=== PATIENT | female | born 1970 | race Caucasian/White ===

== ENCOUNTER → 2017-02-05 | Outpatient (CLI) | payer BC ==
[~2017-02-05] MED LIST: ASPCH81X PO; CARI350T28 PO; DTR5 PO; FAMO20TA12 PO; HYDR-3714 PO; HYDR25TA5 PO; MULT-506 PO; OMEG10007 PO; POTA10CA28 PO; PROP20TA67 PO; PYRI100T4 PO; SIMV20TA2 PO; [UNRECOGNIZED DRUG - OTHER] EXT
--- NOTE | 2017-02-05 15:17 | EXERCISE STRESS TEST ---
This stress test is being performed because of a chest pain syndrome. The patient exercised for 9 minutes on a standard Adria protocol attaining 10.1 METS and a peak heart rate of 166 beats per minute (95% predicted maximum). The test was terminated due to fatigue. The patient did not experience chest discomfort. Initial blood pressure 136/85 and this increased to 190/90 peak exertion. Baseline EKG shows normal sinus rhythm without abnormalities. At peak exercise, patient demonstrated [address] depressions in the inferolateral leads. This resolved within 30 seconds of recovery, suggesting a false positive EKG response. There were no dysrhythmias. CONCLUSIONS: 1. Abnormal ECG treadmill test. 2. No exercise induced chest pain. 3. No dysrhythmias. RECOMMENDATION: Would perform stress testing with an imaging modality.
== END | disposition home or self-care (01) ==
LOC: C.CPL 11:58
PROVIDERS: ATTEND Family Medicine
DX: R07.89 Other chest pain (principal)

== ENCOUNTER → 2017-03-05 | Day surgery (SDC) | payer BC ==
[2017-02-13 15:10] VITALS: Ht 158.8 cm; Wt 75.0 kg
[~2017-03-05] VITALS: Ht 158.8 cm; Wt 75.0 kg
[~2017-03-05] MED LIST changes: +BUPIVACAINE 0.25% 2.5MG/ML PF 10 ML VIAL INFIL ONE; +LIDOCAINE HCL 1% MPF 5 ML VIAL ONE; -[UNRECOGNIZED DRUG - OTHER] EXT
--- NOTE | 2017-03-05 12:14 | History & Physical Bridge - SC ---
H&P Re-Evaluation Bridge Note: I have examined the patient, reviewed the History & Physical and in the interval since the performance of the History & Physical I have noted the following changes of clinical significance: No changes noted
[2017-03-05 12:35] VITALS: TEMP 37.4
--- NOTE | 2017-03-05 12:41 | Discharge Instructions ---
Discharge Instructions Date of Service March 05, 2017. Visit Reason for Visit: Sacrococcygeal Disorder Discharge Discharge Diagnosis / Problem: coccydynia Discharge Goals Goal(s): Decrease discomfort, Improve function Activity Recommendations Activity Limitations: resume your previous activity Anesthesia . Post Anesthesia Instructions: If you have had General Anesthesia or IV Sedation: * Do not drive today. * Resume driving when surgeon permits. * Do not make important decisions or sign legal documents today. * Call surgeon for: 1. Temperature elevations greater than 101 degrees F. 2. Uncontrollable pain. 3. Excessive bleeding. 4. Persistent nausea and vomiting. 5. Medication intolerance (nausea, vomiting or rash). * For nausea and vomiting use only clear liquids such as: tea, soda, bouillon until nausea subsides, then gradually increase diet as tolerated. * If you have any concerns or questions, call your surgeon's office. If physician is unavailable and it is an emergency, call 911 or go to the nearest emergency room. . Diet Recommendations Recommended Home Diet: resume previous diet Procedures Procedures Performed: Sacrococcygeal Ligament Injection Pending Studies Studies pending at discharge: no Medical Emergencies . Who to Call and When: Medical Emergencies: If at any time you feel your situation is an emergency, please call 911 immediately. . Non-Emergent Contact Non-Emergency issues call your: Specialist . . "Provider Documentation" section prepared by Delvin Baig. .
[2017-03-05 12:44] VITALS: BP 137/86; PULSE 68; O2SAT 97
--- NOTE | 2017-03-05 14:26 | OPERATIVE REPORT ---
DATE OF OPERATION: 03/05/2017 PREOPERATIVE DIAGNOSES: Coccydynia and a history of trauma. POSTOPERATIVE DIAGNOSES: Same. PROCEDURE: Sacrococcygeal ligament injection under fluoroscopic guidance. INDICATIONS: The patient is a 46-year-old white female who has received a sacrococcygeal ligament injection with great success in November 2015. More recently, she has been having some increasing pain and she requests another injection to provide her with relief of this problem, which has been intermittently chronic in the past. PHYSICAL EXAMINATION: Pleasant female seated comfortably. She has point tenderness at the junction of the sacrococcygeal ligament. Other areas are nontender. CONSENT: Verbal and written consent was obtained from the patient. Risks and benefits were reviewed. Risks include, but are not limited to abscess and allergic reaction. The patient wishes to proceed. DESCRIPTION OF PROCEDURE: The patient was taken back to the special procedures room of the [facility], where she was maintained in a prone position. Backside was cleansed with Betadine x3 and a dry sterile dressing was applied. Fluoroscope was used to identify from a lateral view the sacrococcygeal junction. The overlying skin was anesthetized with 2.5 mL of lidocaine 1% with a 25-gauge 1-1/2 inch needle. A 25-gauge 3-1/2 inch spinal needle was then placed at the sacrococcygeal ligament junction and injected after negative aspiration with 40 mg of Depo-Medrol and 1.5 mL of bupivacaine 0.25%. Injection was well tolerated. DISPOSITION: 1. The patient was taken out into the discharge recovery area, where she will be discharged home once discharge criteria have been met. 2. Follow up in the [facility] office in 4 weeks' time. I attest to the content of the Intraoperative Record and any orders documented therein. Any exceptio ns are noted below.
== END | disposition home or self-care (01) ==
LOC: X.SURG 11:44
PROVIDERS: ATTEND Physical Medicine & Rehabilitation
DX: M53.3 Sacrococcygeal disorders, not elsewhere classified (principal)

== ENCOUNTER → 2017-03-14 | Outpatient (CLI) | payer BC ==
[~2017-03-14] MED LIST changes: -BUPIVACAINE 0.25% 2.5MG/ML PF 10 ML VIAL INFIL ONE; -LIDOCAINE HCL 1% MPF 5 ML VIAL ONE
[2017-03-14 13:59] LABS: TOTAL IRON BINDING CAPACITY 303 mcg/dl (250-450)
== END | disposition home or self-care (01) ==
LOC: C.LABMFLN 07:58
PROVIDERS: ATTEND Family Medicine
DX: D64.9 Anemia, unspecified (principal)

== ENCOUNTER → 2017-03-19 | Outpatient (CLI) | payer BC ==
--- NOTE | 2017-03-19 14:43 | EXERCISE STRESS ECHO ---
*NOTICE TO RECEIVING [employer] This information is strictly Confidential and protected under [place] law. [place] law prohibits you from making any further disclosure of this information unless further disclosure is expressly permitted by the written consent of the person to whom it pertains or is authorized by law. A general authorization for the release of medical or other information is not sufficient for this purpose. Hospital accepts no responsibility if the information is made available to any other person, INCLUDING THE PATIENT. Interpretation Summary * Name: REKHA CROOK Study Date: 03/19/2017 09:01 AM BP: 139/73 mmHg * Patient Location: [facility] HR: 74 * : 1970 (M/d/yyyy) Gender: Female Height: 65 in * Age: 46 yrs Ethnicity: [place] Weight: 165 lb * Ordering Physician: Karl Potts * Referring Physician: Karl Potts * Performed By: Deniat Juan [facility] * * Reason For Study: ABN EKG / CHEST PAIN * BSA: 1.8 m2 * -- Conclusions -- * Stress Echo: * 1. Negative stress echo for ischemia at 89% MPHR. * 2. Negative exercise ECG for ischemia at 89% MPHR. * 3. Hypertensive response to exercise. * 4. No chest pain reported. * 5. No arrhythmia. * 6. Good exercise tolerance. * ECHO: * 1. Normal left ventricular size and systolic function. EF 60-65%. No regional wall motion abnormalities. No left ventricular hypertrophy. * 2. No significant valvular abnormalities. Procedure Details * ECHOEX, CPT #[id number] * ECHO COLOR FLOW, CPT #[id number] * ECHO DOPPLER, CPT #[id number] Left Ventricle * The left ventricle is normal in size. * There is normal left ventricular wall thickness. * Ejection Fraction = 60-65%. * Left ventricular systolic function is normal. * The left ventricular ejection fraction increases normally with stress. The left ventricular end-systolic cavity size reduces post-stress (normal response). The left ventricular wall motion with stress is normal. * Resting wall motion: Normal. Stress wall motion: Appropriate increase in Left ventricular systolic function and decrease in cavity size. No stress induced segmental wall motion abnormalities. Right Ventricle * The right ventricle is normal in size and function. * The right ventricular systolic function is normal as assessed by tricuspid annular plane systolic excursion (TAPSE) (normal >1.5 cm). Atria * The left atrial size is normal. * Right atrial size is normal. * There is no evidence of atrial septal defect, but resolution does not allow assessment for a patent foramen ovale. Mitral Valve * The mitral valve leaflets appear normal. There is no evidence of stenosis, fluttering, or prolapse. * There is trace mitral regurgitation. Tricuspid Valve * The tricuspid valve is not well visualized, but is grossly normal. * There is no tricuspid stenosis. * Significant tricuspid regurgitation is absent. Aortic Valve * The aortic valve is trileaflet. * The aortic valve is normal in structure and function. * No hemodynamically significant valvular aortic stenosis. * No aortic regurgitation is present. Pulmonic Valve * The pulmonary valve is inadequately visualized, but the Doppler data is adequate for interpretation. * Mild pulmonic valvular regurgitation. Great Vessels * The aortic root is normal size. * Ascending aorta of normal dimension * Aortic arch of normal dimension. * Normal pulmonary venous flow pattern. Pericardium * There is no pericardial effusion. Stress Parameters * NSR at 80 bpm. * No arrhythmia were noted with stress. * No significant ST changes. * The stress portion of this study was personally supervised by the undersigned interpreting physician. * Rest heart rate was '74' BPM. * Rest blood pressure was '139/73' * Maximum heart rate achieved was 155 bpm. * Maximum heart rate was 89 % of maximum age-predicted heart rate. * Maximum blood pressure was '213/85' * Total exercise time was '09:00' * Maximum exercise MET level achieved was '10.10' METS * Maximum treadmill speed was '3.40' miles per hour. * Maximum treadmill elevation was '14.00'% grade. * Exercise was terminated due to 'hypertension' Left Ventricular Diastolic Function * Diastolic dysfunction, Grade II (pseudonormalization pattern). MMode 2D Measurements and Calculations IVSd 1.1 cm IVSs 1.6 cm LVIDd 3.8 cm LVIDs 2.4 cm LVPWd 0.81 cm LVPWs 1.2 cm IVS/LVPW 1.3 FS 36.9 % EDV(Teich) 60.7 ml ESV(Teich) 19.7 ml EF(Teich) 67.6 % EDV(cubed) 53.5 ml ESV(cubed) 13.4 ml EF(cubed) 74.9 % % IVS thick 49.5 % % LVPW thick 52.9 % LV mass(C)d 105.1 grams LV mass(C)dI 57.6 grams/m\S\2 LV mass(C)s 106.4 grams LV mass(C)sI 58.4 grams/m\S\2 SV(Teich) 41.0 ml SI(Teich) 22.5 ml/m\S\2 SV(cubed) 40.0 ml SI(cubed) 22.0 ml/m\S\2 Ao root diam 2.8 cm Ao root area 6.0 cm\S\2 ACS 2.0 cm LA dimension 3.1 cm asc Aorta Diam 2.3 cm LA/Ao 1.1 LVOT diam 2.0 cm LVOT area 3.1 cm\S\2 Doppler Measurements and Calculations MV E max rojas 83.0 cm/sec MV A max rojas 67.9 cm/sec MV E/A 1.2 MV P1/2t max rojas 93.0 cm/sec MV P1/2t 66.8 msec MVA(P1/2t) 3.3 cm\S\2 MV dec slope 407.8 cm/sec\S\2 MV dec time 0.27 sec Ao V2 max 156.5 cm/sec Ao max PG 9.8 mmHg Ao max PG (full) 1.8 mmHg JOANNE(V,A) 2.8 cm\S\2 JOANNE(V,D) 2.8 cm\S\2 LV V1 max PG 8.0 mmHg LV V1 max 141.8 cm/sec TV E max rojas 46.4 cm/sec PA V2 max 115.9 cm/sec PA max PG 5.4 mmHg PI max rojas 147.7 cm/sec PI max PG 8.7 mmHg PI dec slope 139.3 cm/sec\S\2 PI P1/2t 310.6 msec
== END | disposition home or self-care (01) ==
LOC: C.CPL 08:21
PROVIDERS: ATTEND Family Medicine
DX: R07.89 Other chest pain (principal); R94.31 Abnormal electrocardiogram [ECG] [EKG]

== ENCOUNTER → 2017-06-26 | Outpatient (CLI) | payer BC ==
[2017-06-26 13:20] LABS: BLOOD UREA NITROGEN 9 mg/dl (7-18); CALCIUM 9.8 mg/dl (8.5-10.1); CARBON DIOXIDE 31 mmol/L (21-32); CHLORIDE 100 mmol/L (98-107); CHOLESTEROL 198 mg/dl (0-200); CREATININE 0.67 mg/dl (0.60-1.20); GLUCOSE 84 mg/dl (70-99); POTASSIUM 3.4 mmol/L (3.5-5.1); SODIUM 138 mmol/L (136-145); TRIGLYCERIDES 184 mg/dl (0-150); VERY LOW DENSITY LIPOPROT CALC 37 mg/dl
[2017-06-26 13:23] LABS: CHOLESTEROL/HDL RATIO 2.8; HDL CHOLESTEROL 72 mg/dl; LDL CHOLESTEROL CALCULATED 89 mg/dl
== END | disposition home or self-care (01) ==
LOC: C.LABMFLN 07:58
PROVIDERS: ATTEND Family Medicine
DX: E78.00 Pure hypercholesterolemia, unspecified (principal); I10 Essential (primary) hypertension

== ENCOUNTER → 2017-07-02 | Outpatient (CLI) | payer BC ==
--- NOTE | 2017-07-02 15:30 | MAMMOGRAPHY REPORT ---
BILATERAL DIGITAL SCREENING MAMMOGRAM TOMOSYNTHESIS WITH CAD: 07/02/2017 CLINICAL HISTORY: Routine screening examination. TECHNIQUE: Breast tomosynthesis in addition to standard 2D mammography was performed. Current study was also evaluated with a Computer Aided Detection (CAD) system. COMPARISON: Comparison is made to exams dated: 05/02/2015 mammogram, 04/25/2014 mammogram, and 04/21/20 13 mammogram. BREAST COMPOSITION: There are scattered areas of fibroglandular density in both breasts. FINDINGS: The parenchymal pattern is unchanged. No developing mass, architectural distortion or clus ter of suspicious microcalcifications is seen in either breast. IMPRESSION: ACR BI-RADS CATEGORY 2: BENIGN There is no mammographic evidence of malignancy. A 1 year screening mammogram is recommended. The pa tient will receive written notification of the results. Approximately 10% of breast cancers are not detected with mammography. A negative mammographic report should not delay biopsy if a clinically suggestive mass is present. Jazmin Salmeron M.D. ay/:07/02/2017 14:14:19 Night Assistant: Marisol CHEEMA(R)(M), [facility] letter sent: Normal 1/2 BI-RADS Code: ACR BI-RADS Category 2: Benign
== END | disposition home or self-care (01) ==
LOC: C.MAMM 13:14
PROVIDERS: ATTEND Family Medicine
DX: Z12.31 Encounter for screening mammogram for malignant neoplasm of breast (principal)

== ENCOUNTER → 2017-07-18 | Outpatient (CLI) | payer BC | END | disposition home or self-care (01) | LOC: C.LABMFLN 07:59 | PROVIDERS: ATTEND Family Medicine | DX: I10 Essential (primary) hypertension (principal) ==

== ENCOUNTER → 2017-08-14 | Outpatient (CLI) | payer BC ==
[2017-08-14 12:58] LABS: BASO % 0.3 %; BASO ABS # 0.02 K/uL (0-0.2); COMPLETE YES; EOS % 2.6 %; HEMATOCRIT 38.1 % (37-47); IG% 0.3 %; LYMPH % 30.4 %; LYMPH ABS # 1.77 K/uL (1.2-3.4); MEAN CELL VOLUME 87.8 fL (80-100); MEAN CORPUSCULAR HEMOGLOBIN 29.3 pg (25-34); MEAN CORPUSCULAR HGB CONC 33.3 g/dl (32-36); MEAN PLATELET VOLUME 8.9 fL (7.4-10.4); NEUT % 55.4 %; PLATELET COUNT 287 K/uL (130-400); RED BLOOD COUNT 4.34 M/uL (4.2-5.4); WHITE BLOOD COUNT 5.82 K/uL (4.8-10.8)
== END | disposition home or self-care (01) ==
LOC: C.LABMFLN 08:12
PROVIDERS: ATTEND Family Medicine
DX: R53.83 Other fatigue (principal)

== ENCOUNTER → 2018-02-25 | Outpatient (CLI) | payer BC ==
[~2018-02-25] MED LIST changes: -DTR5 PO
== END | disposition home or self-care (01) ==
LOC: C.LAB1850 11:59
PROVIDERS: ATTEND Family Medicine
DX: E87.6 Hypokalemia (principal)

== ENCOUNTER → 2018-02-25 | Day surgery (SDC) | payer BC ==
[2018-02-23 07:41] VITALS: Ht 158.8 cm; Wt 75.0 kg
[~2018-02-25] VITALS: Ht 158.8 cm; Wt 75.0 kg
[~2018-02-25] MED LIST changes: +BUPIVACAINE 0.25% 2.5MG/ML PF 10 ML VIAL ONE; +LIDOCAINE HCL 1% MPF 5 ML VIAL ONE
[2018-02-25 13:08] VITALS: TEMP 37.1
--- NOTE | 2018-02-25 13:10 | [facility] Post Operative Brief Note ---
Immediate Operative Summary Operative Date February 25, 2018. Pre-Operative Diagnosis COCCYDYNIA Post-Operative Diagnosis COCCYDYNIA Procedure(s) Performed SACROCOCCYGEAL LIGAMENT INJECTION Surgeon DR. Jojo SMITH [employer] Surgeon(s) None Estimated Blood Loss 0 Findings Consistent with Post-Op Diagnosis Specimens NA Anesthesia Type Local Complication(s) none Disposition Disposition:
--- NOTE | 2018-02-25 13:12 | Discharge Instructions ---
Discharge Instructions Date of Service February 25, 2018. Visit Reason for Visit: Sacrococcygeal Disorders Discharge Discharge Diagnosis / Problem: coccyx pain Discharge Goals Goal(s): Decrease discomfort, Improve function Activity Recommendations Activity Limitations: resume your previous activity Anesthesia . Post Anesthesia Instructions: If you have had General Anesthesia or IV Sedation: * Do not drive today. * Resume driving when surgeon permits. * Do not make important decisions or sign legal documents today. * Call surgeon for: 1. Temperature elevations greater than 101 degrees F. 2. Uncontrollable pain. 3. Excessive bleeding. 4. Persistent nausea and vomiting. 5. Medication intolerance (nausea, vomiting or rash). * For nausea and vomiting use only clear liquids such as: tea, soda, bouillon until nausea subsides, then gradually increase diet as tolerated. * If you have any concerns or questions, call your surgeon's office. If physician is unavailable and it is an emergency, call 911 or go to the nearest emergency room. . Diet Recommendations Recommended Home Diet: resume previous diet Procedures Procedures Performed: SACROCOCCYGEAL LIGAMENT INJECTION Pending Studies Studies pending at discharge: no Medical Emergencies . Who to Call and When: Medical Emergencies: If at any time you feel your situation is an emergency, please call 911 immediately. . Non-Emergent Contact Non-Emergency issues call your: Specialist . . "Provider Documentation" section prepared by Delvin Baig. .
[2018-02-25 13:31] VITALS: BP 131/78; PULSE 75; O2SAT 98
--- NOTE | 2018-02-25 13:45 | OPERATIVE REPORT ---
DATE OF OPERATION: 02/25/2018 PREOPERATIVE DIAGNOSIS: Coccydynia. POSTOPERATIVE DIAGNOSIS: Same. PROCEDURE: Sacrococcygeal ligament injection under fluoroscopic guidance. INDICATIONS: The patient is a 47-year-old white female who has been seen for sacrococcygeal ligament injections in the past. She has done very well. Last one was done more than a year ago. Pain has returned. She presents today for sacrococcygeal ligament injection to provide her with relief. PHYSICAL EXAMINATION: GENERAL: Pleasant female seated comfortably, in no apparent distress. MUSCULOSKELETAL: Lumbar paraspinal muscles were palpated and noted be nontender. SI joints were nontender. Point tender to palpation over the coccyx. CONSENT: Verbal and written consent was obtained from the patient. Risks and benefits were reviewed. Risks include but are not limited to abscess and allergic reaction. She wishes to proceed. DESCRIPTION OF PROCEDURE: The patient was taken back in the special procedures room of the [facility] where she was maintained in a prone position. Backside was cleansed with Betadine x3 and a dry sterile dressing was then placed. Fluoroscope was used to identify the sacrococcygeal junction. The overlying skin was anesthetized with 4 mL of lidocaine 1% with a 25-gauge 1.5-inch needle. A 25-gauge 3.5 inch spinal needle was directed into the sacrococcygeal junction and injected with 1 mL of bupivacaine and 40 mg of Depo-Medrol. Injection was well tolerated. DISPOSITION: 1. The patient is taken out into the discharge recovery area where she will be discharged home once the discharge criteria are met. 2. Follow up in the [facility] office in 4 weeks' time. I attest to the content of the Intraoperative Record and any orders documented therein. Any exception s are noted below.
== END | disposition home or self-care (01) ==
LOC: X.SURG 12:08
PROVIDERS: ATTEND Physical Medicine & Rehabilitation
DX: M53.3 Sacrococcygeal disorders, not elsewhere classified (principal); Z79.82 Long term (current) use of aspirin; Z79.899 Other long term (current) drug therapy

== ENCOUNTER 2018-05-03 18:03 | Emergency (ER) | payer BC, OTHER ==
[~2018-05-03] VITALS: Ht 157.5 cm; Wt 83.2 kg
[~2018-05-03 18:03] MED LIST changes: -BUPIVACAINE 0.25% 2.5MG/ML PF 10 ML VIAL ONE; -LIDOCAINE HCL 1% MPF 5 ML VIAL ONE
[2018-05-03 18:04] VITALS: TEMP 36.7; Ht 157.5 cm; Wt 83.2 kg
[2018-05-03] MEDS ORDERED: METHYLPREDNISOLONE IV 125 MG in SYRINGE 0 ML IV STA (18:11)
[2018-05-03] MEDS ORDERED: SODIUM CHLORIDE 0.9% 1000ML 1,000 ML IV STA (18:11)
[2018-05-03] MEDS ORDERED: FAMOTIDINE IV INJ 20 MG in DEXTROSE 5% 100ML 100 ML IV STA (18:11)
--- NOTE | 2018-05-03 18:19 | EMERGENCY ROOM VISIT NOTE ---
History Report prepared by Paulette: Freddy Shelton Under the Supervision of: Dr. Daniel Coronel M.D. First contact with patient: 18:08 Chief Complaint: ALLERGIC REACTION Stated Complaint: BEE STING History of Present Illness The patient is a 47 year old female who presents to the Emergency Room with complaints of a constant allergic reaction that began an hour ago after she was stung by a bee on her hand. Patient states she was feeling SOB with a "funny" feeling in her tongue, lips, and head following the incident. Patient describes the "funny" feeling as a "fullness" and "swelling". She states she took Benadryl which has relieved her "swelling" in the back of her tongue, SOB, and her trouble speaking. Patient states she has a history of bee stings, but states this is her first allergic reaction. Source of History: patient Onset: An hour ago Position: head, hand Quality: other ("fullness" / "swelling") Timing: constant Modifying Factors (Relieving): other (None) Associated Symptoms: + SOB Review of Systems See HPI for pertinent positives and negatives. A total of ten systems were reviewed and were otherwise negative. Past Medical & Surgical Medical Problems: (1) Bee sting Family History Diabetes mellitus Heart disease Hypertension Kidney disease Social History Smoking Status: Never Smoker Marital Status: Housing Status: lives with family Current/Historical Medications Scheduled Aspirin (Aspirin Ec), 81 MG PO DAILY Famotidine (Famotidine), 20 MG PO DAILY Fish Oil ([place]-3), 2 CAP PO BID Hydrochlorothiazide (Hydrochlorothiazide), 25 MG PO QAM Multivitamin (Multivitamin), 1 TAB PO QPM Omeprazole (Prilosec), 40 MG PO DAILY Potassium Chloride Microencaps (Potassium Chloride Er), 20 MEQ PO BID Propranolol (Inderal), 20 MG PO BID Pyridoxine Hcl (Vitamin B6 100 Mg), 100 MG PO QPM Simvastatin (Simvastatin), 40 MG PO HS Scheduled PRN Carisoprodol (Soma), 350 MG PO BID PRN for Pain Diphenhydramine Hcl (Benadryl Allergy), 25 MG PO UD PRN for Allergic Reaction Hydrocodone/Acetaminophen 7.5MG/325MG (Mims 7.5MG/325MG), 1-2 TABS PO Q8 PRN for Pain Trazodone Hcl (Trazodone), 50-150 MG PO HS PRN for Sleep Allergies Coded Allergies: Wasp (Verified Allergy, Severe, ANAPHYLAXIS, 05/03/18) Sulfa Drugs (Verified Allergy, Unknown, HIVES, 02/25/18) Valdecoxib (Verified Allergy, Unknown, HIVES WITH BEXTRA, 02/25/18) Physical Exam Vital Signs Date Time Temp Pulse Resp B/P (MAP) Pulse Ox O2 Delivery O2 Flow Rate FiO2 05/03/18 19:20 70 20 131/78 97 05/03/18 18:35 61 05/03/18 18:29 57 20 146/89 98 05/03/18 18:12 100 Room Air 05/03/18 18:04 36.7 68 17 159/89 100 Room Air Physical Exam Physical Exam GENERAL: She is oriented to person, place, and time. She appears well- developed and well-nourished. She does not appear distressed. HENT: Exam performed. Head: Normocephalic and atraumatic. Right Ear: External ear normal. No mastoid tenderness. Left Ear: External ear normal. No mastoid tenderness. Mouth/Throat: The oropharynx is clear and moist. No trismus in the jaw. No dental abscesses or uvula swelling. No oropharyngeal exudate or tonsillar abscesses. EYES: Conjunctivae and EOM are normal. Pupils are equal, round, and reactive to light. Right eye exhibits no discharge. Left eye exhibits no discharge. No scleral icterus. NECK: Normal range of motion. Neck supple. No JVD present. No spinous process tenderness present. No carotid bruit present. No rigidity. No tracheal deviation and normal range of motion present. No Brudzinski's sign and no Kernig 's sign noted. CV: Normal rate, regular rhythm, normal heart sounds and intact distal pulses. There is no peripheral edema. Palpable radial pulses bue. PULM/CHEST: Effort normal and breath sounds normal. No respiratory distress. No stridor. She has no wheezes. She has no rales. Chest Wall: She exhibits no tenderness. ABD: The abdomen is soft. Bowel sounds are normal. She has no distension. No mass is present. There is no tenderness. There is no rebound, no guarding, no Fox's sign and no tenderness at McBurney's point. Rovsig negative MUSC/SKEL: Normal range of motion. There is no peripheral edema, tenderness or deformity. LYMPH: No cervical adenopathy. NEURO: She is alert and oriented to person, place, and time. She has normal strength. No cranial nerve deficit or sensory deficit. Coordination and gait normal. GCS eye subscore is 4. GCS verbal subscore is 5. GCS motor subscore is 6. Cerebellar tests wnl. SKIN: Skin is warm and dry. She is not diaphoretic. PSYCH: She has a normal mood and affect. Behavior is normal. Judgment and thought content normal. Medical Decision & Procedures Medications Administered Medications (Trade) Dose Ordered Sig/Roxy Route Start Time Stop Time Status Last Admin Dose Admin Methylprednisolone Sodium Succinate 125 mg/Syringe 2 ml @ 1.5 mls/min NOW STAT IV 05/03/18 18:11 05/03/18 18:13 DC 05/03/18 18:32 1.5 MLS/MIN Famotidine 20 mg/ Dextrose 102 ml @ 200 mls/hr NOW STAT IV 05/03/18 18:11 05/03/18 18:41 DC 05/03/18 18:32 200 MLS/HR Sodium Chloride 1,000 ml @ 999 mls/hr Q1H1M STAT IV 05/03/18 18:11 05/03/18 19:11 DC 05/03/18 18:32 999 MLS/HR ED Course 180: The patient was evaluated in room C2B. A complete history and physical exam was performed. 181: Sodium Chloride 1000 ml @ 999 mls/hr IV, Famotidine 20mg/Dextrose 102ml @ 200mls/hr IV, and Methylprednisolone Sodium Succinate 125mg/Syringe 2ml @ 1.5mls /min. 1846: I reevaluated the patient. Patient is resting comfortable and in no respiratory distress. Patient's oxygen saturation levels are within normal limits. She has no stridor, no wheezing, and does not feel like her tongue is swelling at this time. Patient will continue to be observed in ER. 0: I reevaluated the patient. Patient is resting comfortable and in no respiratory distress. Patient's oxygen saturation levels are within normal limits. She has no stridor, no wheezing, and does not feel like her tongue is swelling at this time. DISCHARGE - Plan of care discussed with patient and questions answered. The patient was given both verbal and printed discharge instructions. The patient verbalized understanding and ability to comply. The patient is to seek outpatient follow up as noted in the discharge instructions. The patient verbalized understanding and ability to comply. The patient is discharged in stable condition. The patient was instructed to return for worsening symptoms. Medical Decision 1804: The patient was evaluated in room C2B. A complete history and physical exam was performed. 1846: I reevaluated the patient. Patient is resting comfortable and in no respiratory distress. Patient's oxygen saturation levels are within normal limits. She has no stridor, no wheezing, and does not feel like her tongue is swelling at this time. Patient will continue to be observed in ER. 1900: I reevaluated the patient. Patient is resting comfortable and in no respiratory distress. Patient's oxygen saturation levels are within normal limits. She has no stridor, no wheezing, and does not feel like her tongue is swelling at this time. DISCHARGE - Plan of care discussed with patient and questions answered. The patient was given both verbal and printed discharge instructions. The patient verbalized understanding and ability to comply. The patient is to seek outpatient follow up as noted in the discharge instructions. The patient verbalized understanding and ability to comply. The patient is discharged in stable condition. The patient was instructed to return for worsening symptoms. Medication Reconcilliation Current Medication List: was personally reviewed by me Blood Pressure Screening Patient's blood pressure: Elevated blood pressure Blood pressure disposition: Elevated BP felt to be situational Impression Primary Impression: Allergic reaction to insect bite Scribe Attestation The scribe's documentation has been prepared under my direction and personally reviewed by me in its entirety. I confirm that the note above accurately reflects all work, treatment, procedures, and medical decision making performed by me. The chart was completed utilizing [employer] Speech voice recognition software. Grammatical errors, random word insertions, pronoun errors, and incomplete sentences are an occasional consequence of this system due to software limitations, ambient noise, and hardware issues. Any formal questions or concerns about the content, text, or information contained within the body of this dictation should be directly addressed to the physician for clarification. Departure Information Dispostion Home / Self-Care Referrals Karl Potts M.D. (PCP) Forms HOME CARE DOCUMENTATION FORM, IMPORTANT VISIT INFORMATION Patient Instructions ED Allergic Reaction General Other, My [facility]
[2018-05-03] MEDS ORDERED: FAMO1TAB47 PO (18:43)
[2018-05-03] MEDS ORDERED: ZCR40 PO (18:43)
[2018-05-03] MEDS ORDERED: POTA10TA32 PO (18:43)
[2018-05-03] MEDS ORDERED: TRAZ50TA35 PO (18:43)
[2018-05-03] MEDS ORDERED: HYDR-3983 PO (18:43)
[2018-05-03] MEDS ORDERED: ASPI81TA28 PO (18:43)
[2018-05-03] MEDS ORDERED: OMEP40CA41 PO (18:43)
[2018-05-03] MEDS ORDERED: DIPH1TAB87 PO (18:46)
[2018-05-03 19:20] VITALS: BP 131/78; PULSE 70; O2SAT 97
== END 2018-05-03 19:21 | disposition home or self-care (01) ==
LOC: C.EDB 18:04 → C.EDC 19:21
DX: T63.441A Toxic effect of venom of bees, accidental (unintentional), initial encounter (principal); Z79.82 Long term (current) use of aspirin; Z79.899 Other long term (current) drug therapy; Z88.2 Allergy status to sulfonamides; Z88.8 Allergy status to other drugs, medicaments and biological substances

== ENCOUNTER 2020-07-31 19:58 | Inpatient (IN) ==
[2020-07-31 21:10] LABS: Basophils # (auto) 0.03 K/uL (0-0.2); Basophils % (auto) 0.4 %; Eosinophils % (auto) 2.8 %; Hematocrit (blood only) 39.2 % (37-47); Hemoglobin 13.2 g/dL (12.0-16.0); Immature Granulocytes # (auto) 0.01 K/uL (0.00-0.02); Immature Granulocytes % (auto) 0.1 %; Lymphocytes # (auto) 3.44 K/uL (1.2-3.4); Lymphocytes % (auto) 47.4 %; Mean Corpuscular Hemoglobin 28.8 pg (25-34); Mean Corpuscular Hgb Conc 33.7 g/dL (32-36); Mean Corpuscular Volume 85.6 fL (80-100); Mean Platelet Volume 8.7 fL (7.4-10.4); Monocytes # (auto) 0.72 K/uL (0.11-0.59); Monocytes % (auto) 9.9 %; Neutrophils # (auto) 2.85 K/uL (1.4-6.5); Neutrophils % (auto) 39.4 %; Platelet Count 255 K/uL (130-400); RDW Coefficient of Variation 12.8 % (11.5-14.5); RDW Standard Deviation 39.8 fL (36.4-46.3); Red Blood Count 4.58 M/uL (4.2-5.4); White Blood Count 7.25 K/uL (4.8-10.8)
[2020-07-31 21:26] LABS: Alanine Aminotransferase 23 U/L (12-78); Albumin Level 3.8 gm/dl (3.4-5.0); Aspartate Aminotransferase 20 U/L (15-37); Blood Urea Nitrogen 9 mg/dl (7-18); Calcium 9.3 mg/dl (8.5-10.1); Carbon Dioxide 29 mmol/L (21-32); Chloride 104 mmol/L (98-107); Creatinine Clr Calc Pharmacy 74.9 ml/min; Est GFR (African American) 88.8; Est GFR (Non-African American) 76.6; Glucose 87 mg/dl (70-99); Potassium 3.2 mmol/L (3.5-5.1); Sodium 138 mmol/L (136-145)
[2020-07-31 21:30] LABS: Alkaline Phosphatase 103 U/L (45-117); Bilirubin,Total 0.2 mg/dl (0.2-1); Globulin 3.9 gm/dl (2.5-4.0); Partial Thromboplastin Ratio 1.1; Partial Thromboplastin Time 30.6 Seconds (21.0-31.0); Prothrombin Time 10.1 Seconds (9.0-12.0); Total Protein 7.7 gm/dl (6.4-8.2); Troponin I < 0.015 ng/ml (0-0.045)
[2020-07-31] MEDS ORDERED: POTASSIUM CHLORIDE 20 MEQ TABCR PO STA (23:59)
--- NOTE | 2020-08-01 00:12 | Emergency Department Note ---
History of Present Illness General Chief Complaint: Chest Pain Stated Complaint: CHEST PAIN, CLAMMY Time Seen by Provider: 07/31/20 21:36 History of Present Illness Provider Complaint: chest pain Onset (ago): hour(s) 2 (2.5) Duration: improved Onset: during exertion (Washing dishes) Pain Location: substernal Pain Radiation: other (Left chest) Severity: mild Maximum Pain Intensity: 4 Current Pain Intensity: 1 Quality: + other (Pressure) Relieved By: + rest Exacerbated By: + exertion Context: no recent illness, no recent surgery, no recent immobilization, no recent travel, no trauma/injury, no new medications and no history of DVT/PE Associated symptoms: + dyspnea; no nausea, no vomiting, no syncope, no fever and no cough Home Medications Home Medications Medication Instructions Recorded Confirmed Type aspirin 81 mg tablet,delayed 81 mg PO DAILY #90 tab 03/09/19 07/31/20 Rx release cetirizine 10 mg tablet 10 mg PO DAILY PRN #90 tab 03/09/19 07/31/20 Rx omega-3 fatty acids 1,000 mg 2,000 mg PO BID #360 cap 05/26/19 07/31/20 Rx capsule pyridoxine (vitamin B6) 100 mg 100 mg PO DAILY tab 05/26/19 07/31/20 History tablet omeprazole 40 mg capsule,delayed 40 mg PO BID #180 cap 11/24/19 07/31/20 Rx release propranolol 80 mg capsule,24 80 mg PO DAILY #90 cap 03/07/20 07/31/20 Rx hr,extended release oxybutynin chloride 5 mg tablet 5 mg PO BID #180 tab 04/03/20 07/31/20 Rx epinephrine 0.3 mg/0.3 mL 0.3 mg IM .COMPLEX PRN #1 ea 05/01/20 07/31/20 Rx injection, auto-injector duloxetine 60 mg capsule,delayed 60 mg PO BID #180 cap 05/03/20 07/31/20 Rx release orlistat 120 mg capsule 120 mg PO TID #90 cap 05/10/20 07/31/20 Rx carisoprodol 350 mg tablet 350 mg PO BID PRN #60 tab 05/23/20 07/31/20 Rx simvastatin 40 mg tablet 40 mg PO QPM #90 tab 08/19/20 10/26/20 Rx topiramate 25 mg tablet 25 mg PO BID 30 Days #60 tab 05/24/20 07/31/20 Rx diclofenac sodium 1 % topical gel 4 g TOP QID #100 g 07/19/20 07/31/20 Rx potassium chloride 10 mEq 10 meq PO DAILY #30 tab 07/19/20 07/31/20 Rx tablet,extended release rizatriptan 10 mg tablet See Rx Instructions PO ONCE PRN 07/19/20 07/31/20 Rx #12 tab trazodone 50 mg tablet 50 - 150 mg PO HS PRN #270 tab 07/19/20 07/31/20 Rx triamcinolone acetonide 0.1 % 1 applic TOP BID #80 g 07/19/20 07/31/20 Rx topical cream hydrocodone 7.5 mg-acetaminophen See Rx Instructions PO Q8H PRN 07/24/20 07/31/20 Rx 325 mg tablet #180 tab hydrocortisone 2.5 % topical cream 1 applic TOPICAL TID PRN #30 g 07/24/20 07/31/20 Rx Allergies Allergy/AdvReac Type Severity Reaction Status Date / Time hornet venom Allergy Severe ANAPHYLAXIS Verified 07/31/20 23:31 Sulfa (Sulfonamide Allergy Unknown HIVES Verified 07/31/20 23:31 Antibiotics) valdecoxib Allergy Unknown HIVES WITH Verified 07/31/20 23:31 BEXTRA Past Med/Surg History Medical History (Updated 08/01/20 @ 02:19 by Daniel Coronel) Adjustment disorder with emotional disturbance Benign essential hypertension Common migraine without aura Depression GERD (gastroesophageal reflux disease) GERD without esophagitis HTN (hypertension) Hyperactivity of bladder Hypercholesterolemia Lumbago Lumbar facet joint syndrome Lumbar radiculopathy Therapeutic opioid induced constipation Surgical History History of appendectomy Hx of hysterectomy Family History (Updated 08/01/20 @ 00:16 by Daniel Coronel) Father Coronary heart disease Aunt Coronary heart disease Myocardial infarction Social History Smoking Status: Never smoker Second Hand Exposure: No; Do You Dip or Chew Tobacco: No; Tobacco Cessation Education Requested by Patient: No Hx Alcohol Use: Yes Hx Substance Use: No Preferred Language: [place] Communication Ability: Effective Visual Impairment: No Limitations Hearing Ability: Normal Client Services Associate Required: No Beliefs That Will Affect Care: None marital status: Current Living Situation: Spouse and Family current occupational status: employed 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 Other Information That Helps Us Care for You: No Feels Safe at Home: Yes Safety Concerns: Feels Safe At This Time Review of Systems A total of 10 systems reviewed and were otherwise negative Physical Exam Vital Signs Vital Signs - 24 hr 07/31/20 20:01 07/31/20 20:54 07/31/20 23:59 Temperature 37.0 C Temperature Source Oral Pulse Rate 71 Pulse Rate [Finger] 67 68 Pulse Rhythm [Finger] Regular Pulse Strength [Finger] Normal Respiratory Rate 20 20 18 Respiratory Effort / Characteristics Non-Labored Spontaneous Non-Labored Spontaneous Respiratory Depth Normal Normal Respiratory Pattern Blood Pressure 147/88 H Blood Pressure [Right Arm] 148/73 H 139/85 Blood Pressure Mean 107 Blood Pressure Mean [Right Arm] 98 103 Blood Pressure Position [Right Arm] Sitting Pulse Oximetry 99 99 97 Oxygen Delivery Method Room Air Room Air Room Air Sepsis New/Unexplained Change in Mental Status N/A Sepsis Action Taken by Nursing No Action Required 08/01/20 00:44 08/01/20 01:13 Temperature 36.6 C Temperature Source Oral Pulse Rate Pulse Rate [Finger] 58 L 59 L Pulse Rhythm [Finger] Regular Regular Pulse Strength [Finger] Normal Normal Respiratory Rate 16 16 Respiratory Effort / Characteristics Non-Labored Non-Labored Spontaneous Respiratory Depth Normal Normal Respiratory Pattern Regular Regular Blood Pressure Blood Pressure [Right Arm] 139/99 146/86 H Blood Pressure Mean Blood Pressure Mean [Right Arm] 112 106 Blood Pressure Position [Right Arm] Sitting Sitting Pulse Oximetry 98 100 Oxygen Delivery Method Room Air Sepsis New/Unexplained Change in Mental Status Sepsis Action Taken by Nursing Physical Exam GENERAL: She is oriented to person, place, and time. She appears well-developed and well-nourished. She does not appear distressed. HENT: Exam performed. -Head: Normocephalic and atraumatic. -Right Ear: External ear normal. No mastoid tenderness. -Left Ear: External ear normal. No mastoid tenderness. -Mouth/Throat: The oropharynx is clear and moist. No trismus in the jaw. No dental abscesses or uvula swelling. No oropharyngeal exudate or tonsillar abscesses. EYES: Conjunctivae and EOM are normal. Pupils are equal, round, and reactive to light. Right eye exhibits no discharge. Left eye exhibits no discharge. No scleral icterus. NECK: Normal range of motion. Neck supple. No JVD present. No spinous process tenderness present. No carotid bruit present. No rigidity. No tracheal deviation and normal range of motion present. No Brudzinski's sign and no Kernig's sign noted. CV: Normal rate, regular rhythm, normal heart sounds and intact distal pulses. There is no peripheral edema. Palpable radial pulses bue. PULM/CHEST: Effort normal and breath sounds normal. No respiratory distress. No stridor. She has no wheezes. She has no rales. -Chest Wall: She exhibits no tenderness. ABD: The abdomen is soft. Bowel sounds are normal. She has no distension. No mass is present. There is no tenderness. There is no rebound, no guarding, no Fox's sign and no tenderness at McBurney's point. Rovsig negative MUSC/SKEL: Normal range of motion. There is no peripheral edema, tenderness or deformity. LYMPH: No cervical adenopathy. NEURO: She is alert and oriented to person, place, and time. She has normal strength. No cranial nerve deficit or sensory deficit. Coordination and gait normal. GCS eye subscore is 4. GCS verbal subscore is 5. GCS motor subscore is 6. Cerebellar tests wnl. SKIN: Skin is warm and dry. She is not diaphoretic. PSYCH: She has a normal mood and affect. Behavior is normal. Judgment and thought content normal. Course Course 2135: The patient was evaluated in room B5. A complete history and physical exam was performed. Patient was seen during a time of extreme patient volume and patient acuity in the emergency department during the COVID- pandemic. Critical nursing pathways were initiated in triage Cardiac monitoring: An order was placed for continuous cardiac monitoring. The monitor shows a rate of 60 with sinus rhythm EKG and troponin within normal limits. Given the patient's strong family history and her history of hyperlipidemia, the patient will be admitted to the medicine service for chest pain rule out ACS. [facility] Dr. Clements will be notified. Administered Medications Discontinued Medications Potassium Chloride (Potassium Chloride 20 Meq Tabcr) 40 meq PO NOW STA Stop: 08/01/20 00:00 Last Admin: 08/01/20 00:19 Dose: 40 meq Documented by: [id number] Medical Decision Making Laboratory Data Result diagrams: 07/31/20 20:55 07/31/20 20:55 Labs: Lab Results 07/31/20 07/31/20 07/31/20 Range/Units 20:55 20:55 20:55 WBC 7.25 (4.8-10.8) K/uL RBC 4.58 (4.2-5.4) M/uL Hgb 13.2 (12.0-16.0) g/dL Hct 39.2 (37-47) % MCV 85.6 (80-100) fL MCH 28.8 (25-34) pg MCHC 33.7 (32-36) g/dL RDW Std Deviation 39.8 (36.4-46.3) fL RDW Coeff of Katey 12.8 (11.5-14.5) % Plt Count 255 (130-400) K/uL MPV 8.7 (7.4-10.4) fL Immature Gran % (Auto) 0.1 % Neut % (Auto) 39.4 % Lymph % (Auto) 47.4 % [place] % (Auto) 9.9 % Eos % (Auto) 2.8 % Baso % (Auto) 0.4 % Neut # (Auto) 2.85 (1.4-6.5) K/uL Lymph # (Auto) 3.44 H (1.2-3.4) K/uL [place] # (Auto) 0.72 H (0.11-0.59) K/uL Eos # (Auto) 0.20 (0-0.5) K/uL Baso # (Auto) 0.03 (0-0.2) K/uL Immature Gran # (Auto) 0.01 (0.00-0.02) K/uL PT 10.1 (9.0-12.0) Seconds INR 1.0 (0.9-1.1) APTT 30.6 (21.0-31.0) Seconds PTT Ratio 1.1 Sodium 138 (136-145) mmol/L Potassium 3.2 L (3.5-5.1) mmol/L Chloride 104 (98-107) mmol/L Carbon Dioxide 29 (21-32) mmol/L Anion Gap 5.0 (3-11) BUN 9 (7-18) mg/dl Creatinine 0.88 (0.6-1.2) mg/dl Est Cr Clr Drug Dosing 74.9 ml/min Est GFR ( Amer) 88.8 Est GFR (Non-Af Amer) 76.6 BUN/Creatinine Ratio 10.0 (10-20) Glucose 87 (70-99) mg/dl Calcium 9.3 (8.5-10.1) mg/dl Total Bilirubin 0.2 (0.2-1) mg/dl AST 20 (15-37) U/L ALT 23 (12-78) U/L Alkaline Phosphatase 103 (45-117) U/L Troponin I < 0.015 (0-0.045) ng/ml Total Protein 7.7 (6.4-8.2) gm/dl Albumin 3.8 (3.4-5.0) gm/dl Globulin 3.9 (2.5-4.0) gm/dl Albumin/Globulin Ratio 1.0 (0.9-2) ECG Data Additional Comments: EKG #1 at 2007: Sinus rhythm with rate of 58. CA QRS and QTc intervals within normal limits. No ST elevation or ST depression. EKG #2 at 2050: Sinus rhythm with a rate of 57. CA QRS and QTc intervals within normal limits. No ST elevation or ST depression. [facility] Narrative 2136: The patient was evaluated in room B5. A complete history and physical exam was performed. Patient was seen during a time of extreme patient volume and patient acuity in the emergency department during the COVID-19 pandemic. Critical nursing pathways were initiated in triage Cardiac monitoring: An order was placed for continuous cardiac monitoring. The monitor shows a rate of 60 with sinus rhythm EKG and troponin within normal limits. Given the patient's strong family history and her history of hyperlipidemia, the patient will be admitted to the medicine service for chest pain rule out ACS. [facility] Dr. Clements will be notified. Impression & Plan Chest pain Discharge Plan Visit Data Chief Complaint: Chest Pain Stated Complaint: CHEST PAIN, CLAMMY ED Provider: Daniel Coronel Discharge Problem: Chest pain Patient Disposition: Admitted As Inpatient Discharge Instructions Interventions: ED Discharge Assessment Last Done: 08/01/20 00:46 Discharge Problem: Chest pain Qualifiers: Chest pain type: unspecified Qualified Code(s): R07.9 - Chest pain, unspecified
--- NOTE | 2020-08-01 00:23 | History & Physical Report ---
Date of Service July 31, 2020 Assessment & Plan (1) Chest pain: Jayda Garcia is a 50yo female with a history of HTN, HLD, angina, chronic lower back pain, GERD, migraine, bladder hyperactivity, depression, and rotator cuff tear who presented to the ED with chest pain. Initial troponin was negative, and EKG was notable for T-wave inversions in aVR, lead 2, and lead 3, although these are unchanged from an EKG from 2019. Patient's symptoms do not seem to be cardiac in origin, but given the sympathetic symptoms at the same time as her chest pain, patient's PMH of HTN, HLD, angina, as well as her strong family history of ACS at a young age, the decision was made to observe her overnight to rule out ACS. Chest pain, sweating, nausea, dizziness -initial troponin negative; trend q6h -T-wave inversions in aVR, lead 2, and lead 3 are unchanged from prior EKG from 2019; no ST segment changes -second EKG in ED showed no change; repeat EKG tomorrow -currently asymptomatic -admit to telemetry -consider stress test tomorrow -ondansetron 4mg PO prn Mild hypokalemia -3.2 on admission -one-time nighttime dose of 40mEq PO given -40mEq PO qd -repeat BMP in AM HTN -mildly elevated on admission (148/73); normotensive since -c/w home dose propanolol 80mg PO qd HLD -c/w home dose simvastatin 40mg PO qpm Chronic back pain -c/w home dose carisoprodol 350mg PO bid prn -c/w home dose vicodin 7.5mg-325mg PO q8h prn Rotator cuff tear -patient endorses mild tolerable pain -per patient, surgical repair is scheduled for next week GERD -c/w home dose omeprazole 40mg PO bid Migraine -c/w home dose rizatriptan 10mg PO prn Bladder hyperactivity -c/w home dose oxybutynin 5mg PO bid Depression -c/w home dose duloxetine 60mg PO qd FENGI: heart healthy diet DVT prophylaxis: ambulation, SCD's Code status: full code Dispo: admit to med/surg telemtry for r/o ACS (2) Rotator cuff tear, right: (3) Depression: (4) HTN (hypertension): (5) Therapeutic opioid induced constipation: (6) GERD (gastroesophageal reflux disease): (7) Benign essential hypertension: (8) Common migraine without aura: (9) GERD without esophagitis: (10) Hyperactivity of bladder: (11) Hypercholesterolemia: History of Present Illness Primary Care Provider: Karl Potts MD Jayda Garcia is a 50yo female with a history of HTN, HLD, angina, chronic lower back pain, GERD, migraine, bladder hyperactivity, depression, and rotator cuff tear (awaiting surgical repair next week) who presented to the ED with chest pain. Around 7pm this evening, patient reports she was doing dishes when she felt a sudden, sharp, severe (9/10) pain in her chest behind her sternum, without any noticeable trigger. The pain slowly moved left under her breast to the side of her ribcage. The pain was associated with mild SOB, nausea, sweating, and dizziness. After about 15 minutes, the pain went from a 9/10 to 1/10 in severity, and her associated symptoms completely resolved. Patient was driven by her to the ED. While in the ED waiting room, patient reports a second episode of the same pattern of symptoms (sternal pain associated with mild SOB, nausea, sweating, and mild dizziness that moved leftwards before resolving), although she reports this second episode was much less severe (4/10) and only lasted about ten minutes. Patient reports the pain during these episodes feels different from her typical angina pain, and denies any history of similar episodes. Patient denies arm pain, jaw pain, vomiting, palpitations, change in vision, or recent illness. Patient notes a history of brief episodes of mild SOB, nausea, sweating, and mild dizziness ("very similar to today's") that have occurred in the past when her chronic back pain flares up. Patient notes a strong family history of cardiac disease including her father having bypass surgery at age 48, patient's sister dying of an ND at age 54, and her paternal grandmother dying of an ND at age 58. Patient is a never-smoker. She endorses very little alcohol use and no recreational drug use. Allergies Allergy/AdvReac Type Severity Reaction Status Date / Time hornet venom Allergy Severe ANAPHYLAXIS Verified 07/31/20 23:31 Sulfa (Sulfonamide Allergy Unknown HIVES Verified 07/31/20 23:31 Antibiotics) valdecoxib Allergy Unknown HIVES WITH Verified 07/31/20 23:31 BEXTRA Home Medications Home Medications Medication Instructions Recorded Confirmed Type aspirin 81 mg tablet,delayed 81 mg PO DAILY #90 tab 03/09/19 07/31/20 Rx release cetirizine 10 mg tablet 10 mg PO DAILY PRN #90 tab 03/09/19 07/31/20 Rx omega-3 fatty acids 1,000 mg 2,000 mg PO BID #360 cap 05/26/19 07/31/20 Rx capsule pyridoxine (vitamin B6) 100 mg 100 mg PO DAILY tab 05/26/19 07/31/20 History tablet omeprazole 40 mg capsule,delayed 40 mg PO BID #180 cap 11/24/19 07/31/20 Rx release propranolol 80 mg capsule,24 80 mg PO DAILY #90 cap 03/07/20 07/31/20 Rx hr,extended release oxybutynin chloride 5 mg tablet 5 mg PO BID #180 tab 04/03/20 07/31/20 Rx epinephrine 0.3 mg/0.3 mL 0.3 mg IM .COMPLEX PRN #1 ea 05/01/20 07/31/20 Rx injection, auto-injector duloxetine 60 mg capsule,delayed 60 mg PO BID #180 cap 05/03/20 07/31/20 Rx release orlistat 120 mg capsule 120 mg PO TID #90 cap 05/10/20 07/31/20 Rx carisoprodol 350 mg tablet 350 mg PO BID PRN #60 tab 05/23/20 07/31/20 Rx simvastatin 40 mg tablet 40 mg PO QPM #90 tab 05/24/20 07/31/20 Rx topiramate 25 mg tablet 25 mg PO BID 30 Days #60 tab 05/24/20 07/31/20 Rx diclofenac sodium 1 % topical gel 4 g TOP QID #100 g 07/19/20 07/31/20 Rx potassium chloride 10 mEq 10 meq PO DAILY #30 tab 07/19/20 07/31/20 Rx tablet,extended release rizatriptan 10 mg tablet See Rx Instructions PO ONCE PRN 07/19/20 07/31/20 Rx #12 tab trazodone 50 mg tablet 50 - 150 mg PO HS PRN #270 tab 07/19/20 07/31/20 Rx triamcinolone acetonide 0.1 % 1 applic TOP BID #80 g 07/19/20 07/31/20 Rx topical cream hydrocodone 7.5 mg-acetaminophen See Rx Instructions PO Q8H PRN 07/24/20 07/31/20 Rx 325 mg tablet #180 tab hydrocortisone 2.5 % topical cream 1 applic TOPICAL TID PRN #30 g 07/24/20 07/31/20 Rx Past Med/Surg History Medical History (Updated 08/01/20 @ 00:48 by Mack Portillo MD) Adjustment disorder with emotional disturbance Benign essential hypertension Common migraine without aura Depression GERD (gastroesophageal reflux disease) GERD without esophagitis HTN (hypertension) Hyperactivity of bladder Hypercholesterolemia Lumbago Lumbar facet joint syndrome Lumbar radiculopathy Therapeutic opioid induced constipation Surgical History History of appendectomy Hx of hysterectomy Family History (Updated 08/01/20 @ 00:16 by Daniel Coronel) Father Coronary heart disease Aunt Coronary heart disease Myocardial infarction Social History Smoking Status: Never smoker Hx Alcohol Use: No Hx Substance Use: No Preferred Language: Syriac Communication Ability: Effective Visual Impairment: No Limitations Hearing Ability: Normal Commercial Art Instructor Required: No Beliefs That Will Affect Care: None marital status: Current Living Situation: Family current occupational status: employed 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 Feels Safe at Home: Yes Review of Systems Constitutional: no fever, no chills and no malaise Respiratory: no cough, no chest congestion and no wheezing Cardiovascular: no radiating jaw, neck or arm pain, no palpitations, no lightheadedness, no syncope and no calf pain Gastrointestinal: no abdominal pain, no vomiting, no constipation and no diarrhea/loose stools Genitourinary: no dysuria and no urinary frequency Neurologic: no falls, no numbness, no paresthesia and no confusion Physical Exam Constitutional: WD/WN, vitals as above no acute distress and not ill appearing Respiratory: normal respiratory effort, lungs clear to auscultation Cardiovascular: RRR, no murmur, no edema Vessels: no carotid bruit Gastrointestinal (Abdomen): normal bowel sounds, soft, nontender, no hepatosplenomegaly Musculoskeletal: no cyanosis or clubbing, extremities motor strength 5/5 Head/Neck/Chest: normal palpation of chest wall Skin: no rashes, warm and dry Neurologic: PERRL, EOMI, accommodation nl, no face palsy, no dysarthria CN's II-XI intact bilaterally Psychiatric: A+Ox3, euthymic affect Results & Data Results & Data ([facility]) Vital Signs (Past 12 Hours) Vital Signs Temp Pulse Pulse Resp BP BP Pulse Ox 07/31/20 20:54 67 20 148/73 H 99 07/31/20 20:01 37.0 C 71 20 147/88 H 99 Resident Activity Tracking Resident Involvement: Resident Care Provided Care Provided: Adult Hospital Medicine
[2020-08-01] MEDS ORDERED: HYDROCODONE/ACETAMINOPHEN 7.5/325MG TAB PO PRN (01:58)
[2020-08-01] MEDS ORDERED: traZODone HCL 50 MG TAB PO PRN (01:58)
[2020-08-01] MEDS ORDERED: ACETAMINOPHEN 325 MG TAB PO PRN (01:58)
[2020-08-01] MEDS ORDERED: CARISOPRODOL 350 MG TABLET PO PRN (01:58)
[2020-08-01] MEDS ORDERED: EPINEPHrine ADULT AUTO-INJECT 0.3 MG SYR IM PRN (01:58)
[2020-08-01] MEDS ORDERED: ONDANSETRON INJ 2 MG/ML 2 ML VIAL IV PRN (01:58)
[2020-08-01] MEDS ORDERED: HYDROCORTISONE 2.5% CR 30 GM TUBE EXT PRN (01:58)
[2020-08-01] MEDS ORDERED: MAGNESIUM HYDROXIDE SUSP 30 ML UDC PO PRN (01:58)
[2020-08-01] MEDS ORDERED: CETIRIZINE HCL 10 MG TABLET PO PRN (01:58)
--- NOTE | 2020-08-01 04:53 | Billing Data ---
Date of Service August 01, 2020 Coding Level of Care Code 45966 OBS Care - Level 3
--- NOTE | 2020-08-01 07:16 | XRay Report ---
XR chest 1V portable CLINICAL HISTORY: Atypical chest pain. COMPARISON STUDY: Chest radiograph November 16, 2014. FINDINGS: Lung volumes are mildly diminished. There is no pneumothorax or pleural effusion. There is no consolidation or evidence for pulmonary edema. There is mild enlargement of the cardiac silhouette , accentuated on this portable AP exam. IMPRESSION: No acute cardiopulmonary findings. ACT 112: Negative or not required by law. Electronically signed by: James Moulton M.D. 08/01/2020 7:15 AM
[2020-08-01] MEDS: DICLOFENAC SOD 1% GEL 100 GM TUBE EXT SCH ×4 (07:55→20:18)
[2020-08-01] MEDS: TRIAMCINOLONE ACET 0.1% CR 15 GM TUBE TOP SCH ×2 (07:56→20:20)
[2020-08-01] MEDS: PROPRANOLOL HCL LA 80 MG CAPCR PO SCH (07:57)
[2020-08-01] MEDS: ASPIRIN 81 MG ECTAB PO SCH (07:57)
[2020-08-01] MEDS: DULoxetine HCL 60 MG CAP PO SCH ×2 (07:57→20:19)
[2020-08-01] MEDS: OXYBUTYNIN CHLORIDE 5 MG TAB PO SCH ×2 (07:57→20:19)
[2020-08-01] MEDS: TOPIRAMATE 25 MG TAB PO SCH ×2 (07:58→20:19)
[2020-08-01] MEDS: OMEGA-3 (PURIFIED FISH OIL) 1 GM CAP PO SCH ×2 (07:58→20:19)
[2020-08-01] MEDS: PANTOprazole 40 MG TAB PO SCH ×2 (07:58→20:19)
[2020-08-01] MEDS: POTASSIUM CHLORIDE 20 MEQ TABCR PO SCH (07:58)
[2020-08-01] MEDS: PYRIDOXINE HCL 50 MG TAB PO SCH (07:58)
[2020-08-01] MEDS ORDERED: POTASSIUM CHLORIDE 10 MEQ TABCR PO SCH (09:00)
[2020-08-01] MEDS ORDERED: ATROPINE SULFATE 0.1 MG/ML 10ML SYR IV ONE (10:18)
[2020-08-01] MEDS ORDERED: METOPROLOL TARTRATE 1 MG/ML VIAL IV ONE ×2 (10:19→11:33)
[2020-08-01] MEDS ORDERED: DOBUTamine HCL 12.5 MG/ML 20 ML VIAL IV ONE (10:19)
--- NOTE | 2020-08-01 14:49 | XCELERA ---
[id number] \\[id number]_[id number]
--- NOTE | 2020-08-01 18:07 | Hospitalist Progress Note ---
Date of Service August 01, 2020 Assessment & Plan (1) Chest pain: Jayda Garcia is a 50yo female with a history of HTN, HLD, angina, chronic lower back painwho presented with chest pain lasting for about ten minutes Chest pain, sweating, nausea, dizziness -Stable T wave inversions, negative troponin x3 dobutamine stress echo obtained this am inadequate study only reaching about 80% predicted maximum and with some transient mobitz one heart block. - Patient remains asymptomatic, but given her strong family history and risk factors decided to consult cardiology who are recommending a catheterization tomorrow am - Will keep on telemetry and NPO at midnight Mild hypokalemia -3.2 on admission -40mEq PO qd -repeat BMP in AM HTN -mildly elevated on admission (148/73); normotensive since -c/w home dose propanolol 80mg PO qd HLD -c/w home dose simvastatin 40mg PO qpm Chronic back pain -c/w home dose carisoprodol 350mg PO bid prn -c/w home dose vicodin 7.5mg-325mg PO q8h prn Patient missing an injection with Dr. Harp, will need this rescheduled Rotator cuff tear -patient endorses mild tolerable pain -per patient, surgical repair is scheduled for next week GERD -c/w home dose omeprazole 40mg PO bid Migraine -c/w home dose rizatriptan 10mg PO prn Bladder hyperactivity -c/w home dose oxybutynin 5mg PO bid Depression -c/w home dose duloxetine 60mg PO qd FENGI: heart healthy diet NPO at midnight DVT prophylaxis: ambulation, SCD's Code status: full code Dispo: telemetry pending cath in am (2) Rotator cuff tear, right: (3) Depression: (4) HTN (hypertension): (5) Therapeutic opioid induced constipation: (6) GERD (gastroesophageal reflux disease): (7) Benign essential hypertension: (8) Common migraine without aura: (9) GERD without esophagitis: (10) Hyperactivity of bladder: (11) Hypercholesterolemia: Admission and Anticipated Discharge Date Admission Date: August 01, 2020 Supervising Physician Co-Signing Physician Notes I personally examined the patient and verified all melgoza points of history and exam, discussed case, and agree with decision making with Dr John. chest pain resolved. discussed stress test. vitals noted nad heent nc at mmm b reathing unlabored no accessory muscles good effort skin no rashes no pallor or icterus neuro no focal deficits. case d/w cardiology - input greatly appreciated chest pain - ?cardiac vs referred [facility] - high risk. high concern on her part. nondiagnostic w/u so can't really be reassurred by this. agree w [facility] to better risk assess. if positive --> intervene; if negative --> then she has much more peace of mind that this is referred [facility] and it reduces her risk for future hospitalizations and w/u's spinal DJD - will need appt w dr harp rescheduled (was to be tomorrow) Subjective Jayda Garcia is feeling well today, no new chest pain, no other new symptoms on review. She is having her chronic back pain and does not feel like she will be able to walk a stress test and will require a dobutamine test. Review of Systems Review of Systems: All systems reviewed & are unremarkable except as noted in HPI & below Physical Exam Constitutional: well developed, well nourished, + ill appearing, + well hydrated and + obese; no acute distress Eyes: PERRL, conjunctivae normal, anicteric sclerae ENMT: external ear and nose normal, oropharynx normal Respiratory: normal respiratory effort, lungs clear to auscultation Cardiovascular: RRR, no murmur, no edema Gastrointestinal (Abdomen): normal bowel sounds, soft, nontender, no hepatosplenomegaly Results & Data Results & Data ([facility]) Vital Signs (Past 12 Hours) Vital Signs Temp Pulse Pulse Resp BP Pulse Ox 08/01/20 16:00 71 08/01/20 15:52 36.8 C 54 L 17 112/73 100 08/01/20 08:00 36.5 C 54 L 20 118/69 98 08/01/20 07:28 56 L Resident Activity Tracking Resident Involvement: Resident Care Provided Care Provided: Adult Hospital Medicine (1) Chest pain Chest pain type: unspecified Qualified Code(s): R07.9 - Chest pain, unspecified
--- NOTE | 2020-08-01 18:48 | Billing Data ---
Date of Service August 01, 2020 Coding Level of Care Code 55901 Subseq Hosp Care Lvl 3
--- NOTE | 2020-08-01 18:50 | Cardiology Consultation ---
Date of Consultation August 01, 2020 Assessment & Plan (1) Chest pain: (2) Dyspnea on exertion: (3) HTN (hypertension): (4) Hypercholesterolemia: (5) Family history of coronary artery disease: ASSESSMENT/PLAN: 1. Chest pain: Chest pain is atypical as it did occur at rest and although did not attain target heart rate during dobutamine stress echo, she was quite close with hypertensive response and had no chest discomfort and no ischemic changes on stress echo imaging. She has had several different chest discomforts described in the chart over the past several years. She remains quite concerned about her symptoms and overall risk. See below. The the the the the the the 2. Dyspnea with exertion: Her dyspnea with exertion could be related to ischemic heart disease. Her exercise tolerance has decreased over time and more so recently based on her description. She now has to stop to catch her breath doing 1 flight of stairs at home while carrying laundry, which is part of her usual routine. Given her strong family history, she and her would like to pursue coronary angiography to definitively evaluate for coronary artery disease. This is not unreasonable given her multiple health care visits over the years with multiple stress testing modalities as she is quite concerned/worried about her family history and how it could apply to her. Risks and benefits of cardiac catheterization were discussed with her in detail. They were made aware that CT surgery is not available at this facility. COVID19 testing is required for non urgent settings. Cardiac catheterization is non urgent. She appears euvolemic. 3. Hypertension: Blood pressure adequately controlled. 4. Dyslipidemia: She is on statin therapy. If she is found have CAD, would recommend high-intensity statin therapy. 5. Family history of premature CAD: Her and her were not overly reassured with her unremarkable stress testing today and wished to definitively evaluate for CAD with cardiac catheterization. NPO after midnight except for medications. Cardiac catheterization will likely be performed tomorrow. 6. Disposition: Cardiology will continue to follow as above. Plan of care discussed with Dr. Medina of the primary hospitalist service. Highly complex medical issues for which cardiac catheterization will be performed. Thank you for allowing me to participate in the care of your patient. Please call for any other questions or concerns. Sincerely, Juan Carlos Small M.D. History of Present Illness Reason for Consultation: "Chest pain, high risk" Requesting Physician: Reji Medina DO Attending Physician: Reji Medina DO History of Present Illness Mrs. Garcia ('naina') is a very pleasant 50-year-old female with a history significant for hypertension, dyslipidemia, and family history of premature CAD. She also has a history of chronic back pain. She was admitted on 08/01/2020 for chest discomfort. She has been experiencing chest discomfort intermittently for years. When reviewing old records, she has had different types of chest discomfort and has had several stress tests over the years, ER visits, and hospitalizations for chest discomfort. She is quite concerned with her strong family history of coronary disease on her father side were many family members had CAD diagnosed in their 40s or 50s. She has been evaluated by Cardiology in the [place] area and also in the [facility]. She believes that she underwent coronary CT scan over the past few years and once again several stress tests. The coronary CT was reported as normal in 2018 and she believes that all of her stress imaging has been negative as well. 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 It was accompanied by diaphoresis, and shortness of breath with slight dizziness. She reports that her typical angina is a left neck and left shoulder discomfort. She states that she was told by head porter baggage in the past that dose symptoms represent a ngina in her, despite not being diagnosed with CAD. This substernal chest discomfort lasted approximately 20 minutes before spontaneously resolving. She then came to the emergency department and had another episode radiating into her left chest with once again shortness of breath and diaphoresis. Symptoms resolved within approximately 15-20 minutes. While admitted, she has had negative cardiac enzymes. She underwent a dobutamine stress echo earlier today which was near target, 81% MPHR, without ischemic changes. She also was asymptomatic throughout, despite hypertensive response to dobutamine and atropine. She also admits to worsening dyspnea with exertion while carrying a laundry basket upper flight of stairs at home. She states that this is a newer symptom over the past 3 months. She now has to stop to catch her breath. She had stress echo on 11/21/2009 where she exercised 9 minutes and 21 seconds on a Adria protocol, with the stress test being negative. Her exercise tolerance has decreased since then significantly, but even more so in the past 3 months. Her has noticed a difference as well and wonders if it could be due to her chronic back pain. She states that her difficulty in breathing while climbing the stairs is unrelated the back pain as she has not noted significant back pain with his activity. She is currently without chest pain. She denies syncope, near-syncope, palpitations, or bleeding such as melena, hematochezia, or hematuria. She has had swelling generalized throughout her body including her face, hands, and legs. She reports a fever approximately 2 weeks ago and has had radiculopathy pain. Review systems: As above. Review of systems otherwise negative/unremarkable. Family history: Father has CAD and underwent CABG at the age of 48. She states that he has had approximately 20 stents since then. Sister with TIA. Paternal aunt with CAD diagnosed at 48. Paternal aunt with FL at 50. Paternal aunt at 54 on hemodialysis. Paternal grandmother with [place] at 58. Paternal cousin with PCI at the age of 42. Social history: She denies tobacco or drug abuse. Rare alcohol. She lives at home with her in 14-year-old son. She also has an adult son. Two grandchildren. 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 Her was present at the bedside. Allergies Allergy/AdvReac Type Severity Reaction Status Date / Time hornet venom Allergy Severe ANAPHYLAXIS Verified 07/31/20 23:31 Sulfa (Sulfonamide Allergy Unknown HIVES Verified 07/31/20 23:31 Antibiotics) valdecoxib Allergy Unknown HIVES WITH Verified 07/31/20 23:31 BEXTRA Home Medications Home Medications Medication Instructions Recorded Confirmed Type aspirin 81 mg tablet,delayed 81 mg PO DAILY #90 tab 03/09/19 07/31/20 Rx release cetirizine 10 mg tablet 10 mg PO DAILY PRN #90 tab 03/09/19 07/31/20 Rx omega-3 fatty acids 1,000 mg 2,000 mg PO BID #360 cap 05/26/19 07/31/20 Rx capsule pyridoxine (vitamin B6) 100 mg 100 mg PO DAILY tab 05/26/19 07/31/20 History tablet omeprazole 40 mg capsule,delayed 40 mg PO BID #180 cap 11/24/19 07/31/20 Rx release propranolol 80 mg capsule,24 80 mg PO DAILY #90 cap 03/07/20 07/31/20 Rx hr,extended release oxybutynin chloride 5 mg tablet 5 mg PO BID #180 tab 04/03/20 07/31/20 Rx epinephrine 0.3 mg/0.3 mL 0.3 mg IM .COMPLEX PRN #1 ea 05/01/20 07/31/20 Rx injection, auto-injector duloxetine 60 mg capsule,delayed 60 mg PO BID #180 cap 05/03/20 07/31/20 Rx release orlistat 120 mg capsule 120 mg PO TID #90 cap 05/10/20 07/31/20 Rx carisoprodol 350 mg tablet 350 mg PO BID PRN #60 tab 05/23/20 07/31/20 Rx simvastatin 40 mg tablet 40 mg PO QPM #90 tab 05/24/20 07/31/20 Rx topiramate 25 mg tablet 25 mg PO BID 30 Days #60 tab 05/24/20 07/31/20 Rx diclofenac sodium 1 % topical gel 4 g TOP QID #100 g 07/19/20 07/31/20 Rx potassium chloride 10 mEq 10 meq PO DAILY #30 tab 07/19/20 07/31/20 Rx tablet,extended release rizatriptan 10 mg tablet See Rx Instructions PO ONCE PRN 07/19/20 07/31/20 Rx #12 tab trazodone 50 mg tablet 50 - 150 mg PO HS PRN #270 tab 07/19/20 07/31/20 Rx triamcinolone acetonide 0.1 % 1 applic TOP BID #80 g 07/19/20 07/31/20 Rx topical cream hydrocodone 7.5 mg-acetaminophen See Rx Instructions PO Q8H PRN 07/24/20 07/31/20 Rx 325 mg tablet #180 tab hydrocortisone 2.5 % topical cream 1 applic TOPICAL TID PRN #30 g 07/24/20 07/31/20 Rx Patient History Medical History (Updated 08/01/20 @ 18:41 by Kenney Small MD) Adjustment disorder with emotional disturbance Common migraine without aura Depression Family history of coronary artery disease GERD (gastroesophageal reflux disease) GERD without esophagitis HTN (hypertension) Hyperactivity of bladder Hypercholesterolemia Lumbago Lumbar facet joint syndrome Lumbar radiculopathy Therapeutic opioid induced constipation Surgical History History of appendectomy Hx of hysterectomy Family History (Updated 08/01/20 @ 00:16 by Daniel Coronel) Father Coronary heart disease Aunt Coronary heart disease Myocardial infarction Social History Smoking Status: Never smoker Second Hand Exposure: No; Do You Dip or Chew Tobacco: No; Tobacco Cessation Education Requested by Patient: No Hx Alcohol Use: Yes Hx Substance Use: No Preferred Language: [place] Communication Ability: Effective Visual Impairment: No Limitations Hearing Ability: Normal Manager Cardiovascular Required: No Beliefs That Will Affect Care: None marital status: Current Living Situation: Spouse and Family current occupational status: employed 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 Alert and oriented. HEENT: Anicteric sclera. Neck: No JVD. No bruits. Normal carotid upstrokes bilaterally. Cardiac: PMI was nonpalpable. No ventricular heave. Regular rate and rhythm. Normal S1-S2. No murmurs, rubs, or gallops. Pulmonary: Clear to auscultation bilaterally without wheezes, rales, or rhonchi. Abdomen: Soft, nontender, nondistended, with normoactive bowel sounds. No bruits noted. Extremities: 2+ radial pulses bilaterally. 2+ posterior tibialis pulses bilaterally. No edema or cyanosis. No palpable cords. Psychiatric: Affect appears appropriate. Chest: Nontender. Results & Data ([facility]) Vital Signs (Past 12 Hours) Vital Signs Temp Pulse Pulse Resp BP Pulse Ox 08/01/20 16:00 71 08/01/20 15:52 36.8 C 54 L 17 112/73 100 08/01/20 08:00 36.5 C 54 L 20 118/69 98 08/01/20 07:28 56 L Laboratory Results Laboratory Results - last 24 hr 07/31/20 07/31/20 07/31/20 20:55 20:55 20:55 WBC 7.25 RBC 4.58 Hgb 13.2 Hct 39.2 MCV 85.6 MCH 28.8 MCHC 33.7 RDW Std Deviation 39.8 RDW Coeff of Katey 12.8 Plt Count 255 MPV 8.7 Immature Gran % (Auto) 0.1 Neut % (Auto) 39.4 Lymph % (Auto) 47.4 [place] % (Auto) 9.9 Eos % (Auto) 2.8 Baso % (Auto) 0.4 Neut # (Auto) 2.85 Lymph # (Auto) 3.44 H [place] # (Auto) 0.72 H Eos # (Auto) 0.20 Baso # (Auto) 0.03 Immature Gran # (Auto) 0.01 PT 10.1 INR 1.0 APTT 30.6 PTT Ratio 1.1 Sodium 138 Potassium 3.2 L Chloride 104 Carbon Dioxide 29 Anion Gap 5.0 BUN 9 Creatinine 0.88 Est Cr Clr Drug Dosing 74.9 Est GFR ( Amer) 88.8 Est GFR (Non-Af Amer) 76.6 BUN/Creatinine Ratio 10.0 Glucose 87 Calcium 9.3 Total Bilirubin 0.2 AST 20 ALT 23 Alkaline Phosphatase 103 Troponin I < 0.015 Total Protein 7.7 Albumin 3.8 Globulin 3.9 Albumin/Globulin Ratio 1.0 COVID-19 Eval Order SARS-CoV-2, RNA, NAAT 08/01/20 08/01/20 08/01/20 02:17 08:23 18:25 WBC RBC Hgb Hct MCV MCH MCHC RDW Std Deviation RDW Coeff of Katey Plt Count MPV Immature Gran % (Auto) Neut % (Auto) Lymph % (Auto) [place] % (Auto) Eos % (Auto) Baso % (Auto) Neut # (Auto) Lymph # (Auto) [place] # (Auto) Eos # (Auto) Baso # (Auto) Immature Gran # (Auto) PT INR APTT PTT Ratio Sodium Potassium Chloride Carbon Dioxide Anion Gap BUN Creatinine Est Cr Clr Drug Dosing Est GFR ( Amer) Est GFR (Non-Af Amer) BUN/Creatinine Ratio Glucose Calcium Total Bilirubin AST ALT Alkaline Phosphatase Troponin I < 0.015 < 0.015 Total Protein Albumin Globulin Albumin/Globulin Ratio COVID-19 Eval [facility] SARS-CoV-2, RNA, NAAT 08/01/20 18:25 WBC RBC Hgb Hct MCV MCH MCHC RDW Std Deviation RDW Coeff of Katey Plt Count MPV Immature Gran % (Auto) Neut % (Auto) Lymph % (Auto) [place] % (Auto) Eos % (Auto) Baso % (Auto) Neut # (Auto) Lymph # (Auto) [place] # (Auto) Eos # (Auto) Baso # (Auto) Immature Gran # (Auto) PT INR APTT PTT Ratio Sodium Potassium Chloride Carbon Dioxide Anion Gap BUN Creatinine Est Cr Clr Drug Dosing Est GFR ( Amer) Est GFR (Non-Af Amer) BUN/Creatinine Ratio Glucose Calcium Total Bilirubin AST ALT Alkaline Phosphatase Troponin I Total Protein Albumin Globulin Albumin/Globulin Ratio COVID-19 Eval Order SARS-CoV-2, RNA, NAAT Pending Diagnostic Findings Telemetry personally reviewed: Sinus rhythm. Dobutamine stress echo 08/01/2020: No ischemic changes 81% MPHR. Nondiagnostic dobutamine ECG. Hypertensive response. No chest pain. EF 55-60% at rest. Normal wall motion. No significant valvular abnormalities. ECGs personally reviewed: ECG 07/31/2020: Sinus bradycardia 58 beats per minute. ECG 08/01/2020: Sinus bradycardia 53 beats per minute. chest x-ray 08/01/2020: No acute cardiopulmonary findings. Medications Administered Current Inpatient Medications Acetaminophen (Acetaminophen 325 Mg Tab) 650 mg PO Q4H PRN PRN Reason: Pain or Fever Stop: 08/31/20 01:57 Hydrocodone Bitart/Acetaminophen (Hydrocodone/Acetaminophen 7.5/325mg Tab) 1 - 2 tab PO Q8H PRN PRN Reason: pain Stop: 08/15/20 01:57 Aspirin (Aspirin 81 Mg Ectab) 81 mg PO DAILY TRAMAINE Stop: 08/31/20 08:59 Last Admin: 08/01/20 07:57 Dose: 81 mg Documented by: Carisoprodol (Carisoprodol 350 Mg Tablet) 350 mg PO BID PRN PRN Reason: muscle pain Stop: 08/31/20 01:57 Cetirizine HCl (Cetirizine Hcl 10 Mg Tablet) 10 mg PO DAILY PRN PRN Reason: allergy symptoms Stop: 08/31/20 01:57 Last Admin: 08/01/20 07:57 Dose: 10 mg Documented by: Diclofenac Sodium (Diclofenac Sod 1% Gel 100 Gm Tube) 4 gm EXT QID TRAMAINE Stop: 08/31/20 08:59 Last Admin: 08/01/20 16:51 Dose: 4 gm Documented by: Duloxetine HCl (Duloxetine Hcl 60 Mg Cap) 60 mg PO BID TRAMAINE Stop: 08/31/20 08:59 Last Admin: 08/01/20 07:57 Dose: 60 mg Documented by: Epinephrine HCl (Epinephrine Adult Auto-Inject 0.3 Mg Syr) 0.3 mg IM UD PRN PRN Reason: anaphylaxis Stop: 08/31/20 01:57 Fish Oil ([place]-3 (Purified Fish Oil) 1 Gm Cap) 2 gm PO BID TRAMAINE Stop: 08/31/20 08:59 Last Admin: 08/01/20 07:58 Dose: 2 gm Documented by: Hydrocortisone (Hydrocortisone 2.5% Cr 30 Gm Tube) 1 appln EXT TID PRN PRN Reason: skin irritation Stop: 08/31/20 01:57 Magnesium Hydroxide (Magnesium Hydroxide Susp 30 Ml Udc) 30 ml PO Q12H PRN PRN Reason: Constipation Stop: 08/31/20 01:57 Miscellaneous (Orlistat~Order Awaiting Action) 1 ea N/A QS [facility] Stop: 08/31/20 07:59 Last Admin: 08/01/20 16:13 Dose: Not Given Documented by: Ondansetron HCl (Ondansetron Inj 2 Mg/Ml 2 Ml Vial) 4 mg IV Q6H PRN PRN Reason: Nausea Stop: 08/31/20 01:57 Oxybutynin Chloride (Oxybutynin Chloride 5 Mg Tab) 5 mg PO BID TRAMAINE Stop: 08/31/20 08:59 Last Admin: 08/01/20 07:57 Dose: 5 mg Documented by: Pantoprazole Sodium (Pantoprazole 40 Mg Tab) 40 mg PO BID TRAMAINE Stop: 08/31/20 08:59 Last Admin: 08/01/20 07:58 Dose: 40 mg Documented by: Potassium Chloride (Potassium Chloride 20 Meq Tabcr) 40 meq PO QAM TRAMAINE Stop: 08/31/20 08:59 Last Admin: 08/01/20 07:58 Dose: 40 meq Documented by: Propranolol HCl (Propranolol Hcl La 80 Mg Capcr) 80 mg PO DAILY TRAMAINE Stop: 08/31/20 08:59 Last Admin: 08/01/20 07:57 Dose: 80 mg Documented by: Pyridoxine HCl (Pyridoxine Hcl 50 Mg Tab) 100 mg PO DAILY [facility] Stop: 08/31/20 08:59 Last Admin: 08/01/20 07:58 Dose: 100 mg Documented by: Simvastatin (Simvastatin 40 Mg Tab) 40 mg PO QPM TRAMAINE Stop: 08/31/20 20:59 Topiramate (Topiramate 25 Mg Tab) 25 mg PO BID TRAMAINE Stop: 08/31/20 08:59 Last Admin: 08/01/20 07:58 Dose: 25 mg Documented by: Trazodone HCl (Trazodone Hcl 50 Mg Tab) 50 mg PO HS PRN PRN Reason: insomnia Stop: 08/31/20 01:57 Triamcinolone Acetonide (Triamcinolone Acet 0.1% Cr 15 Gm Tube) 1 appln TOP BID TRAMAINE Stop: 08/31/20 08:59 Last Admin: 08/01/20 07:56 Dose: Not Given Documented by: PG Care Time/CCT Total # of Minutes Spent Total Time Spent with Patient: Total time spent is greater than 50% in coordination of care (as documented) at patient's floor/unit and/or counseling patient: Coding Level of Care Code 84241 Inpt Consult Level 5 Diagnoses Chest pain R07.9 Chest pain type: unspecified Dyspnea on exertion R06.00 HTN (hypertension) I10 Hypercholesterolemia E78.00 Family history of coronary artery disease Z82.49 (1) Chest pain Chest pain type: unspecified Qualified Code(s): R07.9 - Chest pain, unspecified
[2020-08-01] MEDS ORDERED: SIMVASTATIN 40 MG TAB PO SCH (21:00)
[2020-08-02] MEDS: ASPIRIN 81 MG ECTAB PO SCH (05:30)
--- NOTE | 2020-08-02 05:48 | Electrocardiogram Report ---
Test Reason : Blood Pressure : / mmHG Vent. Rate : 058 BPM Atrial Rate : 058 BPM P-R Int : 142 ms QRS Dur : 094 ms QT Int : 414 ms P-R-T Axes : 059 023 042 degrees QTc Int : 406 ms Sinus bradycardia Otherwise normal ECG When compared with ECG of 16-NOV-2014 16:50, T wave inversion now evident in Anterior leads Confirmed by Kenney Small ([id number]) on 08/02/2020 5:48:03 AM Referred By: REFERRED SELF Confirmed By:Kenney Small
--- NOTE | 2020-08-02 05:53 | Electrocardiogram Report ---
Test Reason : Blood Pressure : / mmHG Vent. Rate : 053 BPM Atrial Rate : 053 BPM P-R Int : 166 ms QRS Dur : 088 ms QT Int : 470 ms P-R-T Axes : 057 025 047 degrees QTc Int : 441 ms Sinus bradycardia Otherwise normal ECG When compared with ECG of 31-JUL-2020 20:08, No significant change was found Confirmed by Kenney Small ([id number]) on 08/02/2020 5:53:29 AM Referred By: REFERRED SELF Confirmed By:Kenney Small
[2020-08-02 06:08] LABS: Basophils # (auto) 0.03 K/uL (0-0.2); Basophils % (auto) 0.4 %; Eosinophils # (auto) 0.17 K/uL (0-0.5); Eosinophils % (auto) 2.2 %; Hematocrit (blood only) 38.6 % (37-47); Hemoglobin 12.9 g/dL (12.0-16.0); Immature Granulocytes # (auto) 0.02 K/uL (0.00-0.02); Immature Granulocytes % (auto) 0.3 %; Lymphocytes # (auto) 2.85 K/uL (1.2-3.4); Lymphocytes % (auto) 36.5 %; Mean Corpuscular Hemoglobin 29.1 pg (25-34); Mean Corpuscular Hgb Conc 33.4 g/dL (32-36); Mean Corpuscular Volume 87.1 fL (80-100); Mean Platelet Volume 8.9 fL (7.4-10.4); Monocytes # (auto) 0.87 K/uL (0.11-0.59); Monocytes % (auto) 11.1 %; Neutrophils # (auto) 3.87 K/uL (1.4-6.5); Neutrophils % (auto) 49.5 %; Platelet Count 257 K/uL (130-400); RDW Standard Deviation 41.6 fL (36.4-46.3); Red Blood Count 4.43 M/uL (4.2-5.4); White Blood Count 7.81 K/uL (4.8-10.8)
[2020-08-02 06:41] LABS: BUN Creatinine Ratio 13.9 (10-20); Calcium 9.2 mg/dl (8.5-10.1); Creatinine Clr Calc Pharmacy 75.9 ml/min; Est GFR (Non-African American) 77.7; Phosphorus 3.6 mg/dl (2.5-4.9); Potassium 3.8 mmol/L (3.5-5.1)
[2020-08-02] MEDS ORDERED: fentaNYL citrate 100 MCG/2 ML VIAL ONE (09:19)
[2020-08-02] MEDS ORDERED: niCARdipine HCL INJ 2.5 MG/ML 10 ML AMP ONE (09:19)
[2020-08-02] MEDS ORDERED: HEPARIN (PORCINE) 1000 UNIT/ML 10 ML (CATH LAB USE ONLY) ONE (09:19)
[2020-08-02] MEDS ORDERED: NITROGLYCERIN/D5W 100MCG/ML 20ML SYR ONE (09:20)
[2020-08-02] MEDS ORDERED: MIDAZOLAM HCL 1 MG/ML 2ML VIAL ONE (09:20)
[2020-08-02] MEDS ORDERED: ASPIRIN 81 MG CHEW ONE (10:17)
--- NOTE | 2020-08-02 10:52 | Pre Anesthesia Assessment ---
Date of Service August 02, 2020 Pre Sedation Assessment Vital Signs Temp Pulse Pulse Resp BP Pulse Ox 08/02/20 09:10 72 18 137/71 100 08/02/20 07:15 36.4 C L 56 L 16 98/61 L 96 08/02/20 03:10 36.6 C 67 16 102/65 98 08/02/20 00:12 36.6 C 54 L 18 115/73 97 08/02/20 00:00 59 L 08/01/20 19:50 36.8 C 59 L 19 104/64 99 08/01/20 16:00 71 08/01/20 15:52 36.8 C 54 L 17 112/73 100 Cardiovascular RRR, no murmur, no edema Respiratory normal respiratory effort, lungs clear to auscultation Pre-Sedation Airway Assessment Smoking Status: Never smoker Hx Sleep Apnea: No Short, Thick Neck: No Thyromental Distance: > or= 3.5 Finger Breadths Oral Cavity: + WNL Mallampati Class: II ASA: ASA2 NPO Status Date of Last Intake of Fluids: 08/01/20 Time of Last Intake of Fluids: 23:45 Date of Last Intake of Solid Food: 08/01/20 Time of Last Intake of Solid Foods: 18:00 Procedure Planning Contraindications for Sedation: none Current Medications Reviewed: Yes Notes The planned sedation has been discussed with the patient. Informed Consent was obtained. I have identified the patient, determined the appropriateness of sedation and have assessed the patient immediately prior to the procedure. All medicine(s) and interventions are by my order.
--- NOTE | 2020-08-02 11:47 | Cardiac Catheterization ---
[facility] Data: [facility] Cardiac Status Clinical evaluation leading to the procedure CAD Presenation: No Sxs, No angina (chronic intermittent chest pain and dyspnea on exertion) Anginal Classification: No Symptoms Heart Failure: No Cardiogenic Shock within 24 Hours: No Cardiac Arrest within 24 Hours: No Imaging Studies Past 6 Months: Yes Stress Studies Past 6 Months: Yes Standard Exercise Test: No Stress Echocardiogram: Yes - Indeterminant Stress Testing w/SPECT MPI: No Cardiac CTA: No Coronary Anatomy Dominant: Left Left Ventricular Angiography EF (%): n/a Diagnostic Physicians Name: Kenney Small MD Status: Elective Closure Device Percutaneous Entry Location: Radial Closure Device: Radial Band Recommendations: Management Recommendatons (as above) Cardiac Cath Procedure Full Procedure Date August 02, 2020 Pre-Procedure Diagnosis Pre-Procedure Diagnosis: Angina AUC Score AUC Score: 7 Post-Procedure Diagnosis Post-Procedure Diagnosis: Normal Coronary Arteries and Normal Intracardiac Pressures Procedure(s) Performed Procedure(s) Performed: Coronary Angiography and Left Heart Cath Senior Net Architect Kenney Small MD Industrial Electrician(s) Smuck Estimated Blood Loss Estimated Blood Loss: < 20 ml Medication(s) Medication(s): Fentanyl, Heparin, Lidocaine 1%, Nicardipine and Versed Summary of Findings Procedures: 1. Coronary angiography 2. Left heart catheterization Coronary angiography: 1. Left main coronary artery: LMCA has superior takeoff. No CAD. 2. Left anterior descending: LAD extends to the apex. Gives rise to large D1. No significant CAD. 3. Circumflex: The circumflex is large and dominant. No significant CAD within the circumflex, large branching OM1, PL branches, or PDA. 4. Right coronary artery: RCA is small and nondominant. No significant CAD. Left heart catheterization: 1. Left ventriculography was not performed. 2. No aortic stenosis. 3. Normal LVEDP; 8 mmHg. Procedural notes: 1. LMCA angiography was performed with 5 Divehi AL-1 diagnostic catheter. RCA was engaged with 5 Divehi JR4 diagnostic catheter. Impression: 1. No angiographic evidence of CAD. 2. Left dominant system. 3. Normal left-sided filling pressures. 4. No aortic stenosis. 5. Noncardiac chest pain. Plan: 1. Can follow-up with PCP or hospitalist service for noncardiac chest discomfort. 2. Continue risk factor modification. Hemodynamics Rest Ao:: 141/67 Final Ao: 131/63 LV: 142/0/8 Recommendations Recommendations: Management Recommendatons (as above) Specimens Specimens: None Radiation Exposure (mGy) 862 mGy. Fluoro time 8.5 min. Contrast (mls) 35 ml Procedural Complication(s) None Disposition [facility] Holding/Recovery I attest to the content of the Intraoperative Record and any orders documented therein. Any exceptions are noted below. [facility] Card Cath Procedure Codes Cardiac Catheterization Procedure 1: Cardiovascular Cath Procedures: 04759 Coronaries and LHC (+/-LV) Moderate Sedation Procedure 1: Sedation/Anesthesia: 33788 Mod Sedation by the same physician;Init15 Min Child Age 5 & Up Procedure 2: Sedation/Anesthesia: 40914 Mod Sedation by the same physician; Ea Nkviuxaige42 Minutes PG Care Time/CCT Total # of Minutes Spent Total Time Spent with Patient: Total time spent is greater than 50% in coordination of care (as documented) at patient's floor/unit and/or counseling patient:
--- NOTE | 2020-08-02 11:59 | Post Anesthesia Assessment ---
Date of Service August 02, 2020 Post Sedation Assessment Vital Signs Temp Pulse Pulse Resp BP Pulse Ox 08/02/20 11:45 66 18 106/72 95 08/02/20 09:10 72 18 137/71 100 08/02/20 07:15 36.4 C L 56 L 16 98/61 L 96 08/02/20 03:10 36.6 C 67 16 102/65 98 08/02/20 00:12 36.6 C 54 L 18 115/73 97 08/02/20 00:00 59 L 08/01/20 19:50 36.8 C 59 L 19 104/64 99 08/01/20 16:00 71 08/01/20 15:52 36.8 C 54 L 17 112/73 100 Recovery Score Activity: Moves 4 extremities Respiration: Deep Breath/Cough Circulation: +/-20% PreAnes Value Consciousness: Fully Awake Oxygen Saturation: > 92% On Room Air Post Anesthesia Score: 10 Discharge Sedation Level of Care: Fast Track Phase II Post Sedation Plan On clinical assessment, the patient appears to have tolerated the sedation without complications. Patient is recovering as anticipated. Patient will continue to be monitored by nursing and may be discharged when sedation discharge criteria are met per below protocol. Upon Completions of procedure up to 15 minutes continue every 5 minute vital signs and the P.A.R. score; then discharge to a Phase I or Fast Track to Phase II per the following guidelines: * Discharge Patient to appropriate Phase II area if PAR is 8 or greater or return to pre- procedure baseline. The post - procedure orders will be as directed. * If PAR score is less than 8 or not return to pre-procedure baseline then patient will follow Phase I monitoring till PAR is reached for Phase II. The Phase I may be done in procedure room or may call to secure a Phase I area. * If naloxone or flumazenil are used for reversal, hold in Phase I for continued monitoring from when last reversal dose was given for a minimum of 60 minutes or longer pending the nurse and/or physician discretion of patient condition before discharge to Phase II. Please call the Sedation Physician to re-evaluate and complete post-note for discharge to Phase II area. Do NOT discharge from procedure sedation or Phase 1 until post- sedation evaluation note is complete by procedure /sedation MD Sedation Discharge Instructions to be given to the patient at discharge to home.
[2020-08-02] MEDS ORDERED: SODIUM CHLORIDE 0.9% 1000ML 1,000 ML IV SCH (12:00)
--- NOTE | 2020-08-02 12:39 | Cardiology Progress Note ---
Date of Service August 02, 2020 Assessment & Plan (1) Chest pain: (2) Dyspnea on exertion: (3) HTN (hypertension): (4) Hypercholesterolemia: (5) Family history of coronary artery disease: ASSESSMENT/PLAN: 1. Chest pain: No further chest pain. Chest pain is noncardiac as she has no coronary artery disease and symptoms were atypical. 2. Dyspnea with exertion: Her dyspnea with exertion does not appear to be cardiac in nature. Her left-sided filling pressure is normal, has no si gnificant valvular abnormalities, and no coronary artery disease. As per primary service/PCP. 3. Hypertension: Blood pressure remains reasonably controlled. No changes recommended at this time. 4. Dyslipidemia: Tolerating statin therapy as an outpatient. 5. Family history of premature CAD: She was reassured that she does not have coronary artery disease based on coronary angiography performed earlier today. She seemed relieved. 6. Disposition: When she has appropriately recovered from her cardiac catheterization, she can be discharged home from a cardiac perspective. Will defer discharge to primary service. Follow-up with PCP. Admission and Anticipated Discharge Date Admission Date: August 01, 2020 Subjective She denies any further chest pain while hospitalized. She denies shortness of breath, palpitations, syncope, near-syncope, edema, or bleeding. Earlier today, she underwent cardiac catheterization which demonstrated dominant circumflex. There was no significant coronary artery disease. Left-sided filling pressure was normal. No aortic stenosis. Review of systems: As above. Physical Exam Physical Exam: Gen.: No acute distress. Alert and oriented. HEENT: Anicteric sclera. Neck: No JVD. Cardiac:No ventricular heave. Regular rate and rhythm. Normal S1-S2. No murmurs, rubs, or gallops. Pulmonary: Clear to auscultation bilaterally without wheezes, rales, or rhonchi. Abdomen: Soft, nontender, nondistended, with normoactive bowel sounds. No bruits noted. Extremities: 2+ radial pulses bilaterally. 2+ posterior tibialis pulses bilaterally. No edema or cyanosis. Psychiatric: Affect appears appropriate. Results & Data ([facility]) Vital Signs (Past 12 Hours) Vital Signs Temp Pulse Resp BP BP Pulse Ox 08/02/20 12:15 37 C 60 16 113/75 98 08/02/20 12:00 64 18 121/70 96 08/02/20 11:45 66 18 106/72 95 08/02/20 09:10 72 18 137/71 100 08/02/20 07:15 36.4 C L 56 L 16 98/61 L 96 08/02/20 03:10 36.6 C 67 16 102/65 98 Laboratory Results Laboratory Results - last 24 hr 08/01/20 08/01/20 08/02/20 18:25 18:25 05:44 WBC 7.81 RBC 4.43 Hgb 12.9 Hct 38.6 MCV 87.1 MCH 29.1 MCHC 33.4 RDW Std Deviation 41.6 RDW Coeff of Katey 13.0 Plt Count 257 MPV 8.9 Immature Gran % (Auto) 0.3 Neut % (Auto) 49.5 Lymph % (Auto) 36.5 [place] % (Auto) 11.1 Eos % (Auto) 2.2 Baso % (Auto) 0.4 Neut # (Auto) 3.87 Lymph # (Auto) 2.85 [place] # (Auto) 0.87 H Eos # (Auto) 0.17 Baso # (Auto) 0.03 Immature Gran # (Auto) 0.02 Sodium Potassium Chloride Carbon Dioxide Anion Gap BUN Creatinine Est Cr Clr Drug Dosing Est GFR ( Amer) Est GFR (Non-Af Amer) BUN/Creatinine Ratio Glucose Calcium Phosphorus Magnesium COVID-19 Eval Order Covid19 [facility]Now [facility] SARS-CoV-2, RNA, NAAT NEGATIVE 08/02/20 05:44 WBC RBC Hgb Hct MCV MCH MCHC RDW Std Deviation RDW Coeff of Katey Plt Count MPV Immature Gran % (Auto) Neut % (Auto) Lymph % (Auto) [place] % (Auto) Eos % (Auto) Baso % (Auto) Neut # (Auto) Lymph # (Auto) [place] # (Auto) Eos # (Auto) Baso # (Auto) Immature Gran # (Auto) Sodium 140 Potassium 3.8 D Chloride 108 H Carbon Dioxide 26 Anion Gap 6.0 BUN 12 Creatinine 0.87 Est Cr Clr Drug Dosing 75.9 Est GFR ( Amer) 90.0 Est GFR (Non-Af Amer) 77.7 BUN/Creatinine Ratio 13.9 Glucose 89 Calcium 9.2 Phosphorus 3.6 Magnesium 2.0 COVID-19 Eval Order SARS-CoV-2, RNA, NAAT Diagnostic Findings Cardiac catheterization performed 08/02/2020: No CAD. Normal left-sided fill ing pressure. No aortic stenosis. ECG personally reviewed. ECG 08/02/2020: Sinus bradycardia 57 beats per minute. Medications Administered Current Inpatient Medications Acetaminophen (Acetaminophen 325 Mg Tab) 650 mg PO Q4H PRN PRN Reason: Pain or Fever Stop: 08/31/20 01:57 Hydrocodone Bitart/Acetaminophen (Hydrocodone/Acetaminophen 7.5/325mg Tab) 1 - 2 tab PO Q8H PRN PRN Reason: pain Stop: 08/15/20 01:57 Aspirin (Aspirin 81 Mg Ectab) 81 mg PO DAILY TRAMAINE Stop: 08/31/20 08:59 Last Admin: 08/02/20 05:30 Dose: 81 mg Documented by: Carisoprodol (Carisoprodol 350 Mg Tablet) 350 mg PO BID PRN PRN Reason: muscle pain Stop: 08/31/20 01:57 Cetirizine HCl (Cetirizine Hcl 10 Mg Tablet) 10 mg PO DAILY PRN PRN Reason: allergy symptoms Stop: 08/31/20 01:57 Last Admin: 08/01/20 07:57 Dose: 10 mg Documented by: Diclofenac Sodium (Diclofenac Sod 1% Gel 100 Gm Tube) 4 gm EXT QID TRAMAINE Stop: 08/31/20 08:59 Last Admin: 08/01/20 20:18 Dose: 4 gm Documented by: Duloxetine HCl (Duloxetine Hcl 60 Mg Cap) 60 mg PO BID TRAMAINE Stop: 08/31/20 08:59 Last Admin: 08/01/20 20:19 Dose: 60 mg Documented by: Epinephrine HCl (Epinephrine Adult Auto-Inject 0.3 Mg Syr) 0.3 mg IM UD PRN PRN Reason: anaphylaxis Stop: 08/31/20 01:57 Fish Oil ([place]-3 (Purified Fish Oil) 1 Gm Cap) 2 gm PO BID TRAMAINE Stop: 08/31/20 08:59 Last Admin: 08/01/20 20:19 Dose: 2 gm Documented by: Hydrocortisone (Hydrocortisone 2.5% Cr 30 Gm Tube) 1 appln EXT TID PRN PRN Reason: skin irritation Stop: 08/31/20 01:57 Sodium Chloride (Nss 1000ml) 1,000 mls @ 125 mls/hr IV .Q8H TRAMAINE Stop: 08/02/20 16:00 Magnesium Hydroxide (Magnesium Hydroxide Susp 30 Ml Udc) 30 ml PO Q12H PRN PRN Reason: Constipation Stop: 08/31/20 01:57 Miscellaneous (Orlistat~Order Awaiting Action) 1 ea N/A QS TRAMAINE Stop: 08/31/20 07:59 Last Admin: 08/02/20 01:18 Dose: Not Given Documented by: Ondansetron HCl (Ondansetron Inj 2 Mg/Ml 2 Ml Vial) 4 mg IV Q6H PRN PRN Reason: Nausea Stop: 08/31/20 01:57 Oxybutynin Chloride (Oxybutynin Chloride 5 Mg Tab) 5 mg PO BID TRAMAINE Stop: 08/31/20 08:59 Last Admin: 08/01/20 20:19 Dose: 5 mg Documented by: Pantoprazole Sodium (Pantoprazole 40 Mg Tab) 40 mg PO BID TRAMAINE Stop: 08/31/20 08:59 Last Admin: 08/01/20 20:19 Dose: 40 mg Documented by: Potassium Chloride (Potassium Chloride 20 Meq Tabcr) 40 meq PO QAM TRAMAINE Stop: 08/31/20 08:59 Last Admin: 08/01/20 07:58 Dose: 40 meq Documented by: Propranolol HCl (Propranolol Hcl La 80 Mg Capcr) 80 mg PO DAILY TRAMAINE Stop: 08/31/20 08:59 Last Admin: 08/01/20 07:57 Dose: 80 mg Documented by: Pyridoxine HCl (Pyridoxine Hcl 50 Mg Tab) 100 mg PO DAILY TRAMAINE Stop: 08/31/20 08:59 Last Admin: 08/01/20 07:58 Dose: 100 mg Documented by: Simvastatin (Simvastatin 40 Mg Tab) 40 mg PO QPM TRAMAINE Stop: 08/31/20 20:59 Last Admin: 08/01/20 20:18 Dose: 40 mg Documented by: Topiramate (Topiramate 25 Mg Tab) 25 mg PO BID TRAMAINE Stop: 08/31/20 08:59 Last Admin: 08/01/20 20:19 Dose: 25 mg Documented by: Trazodone HCl (Trazodone Hcl 50 Mg Tab) 50 mg PO HS PRN PRN Reason: insomnia Stop: 08/31/20 01:57 Triamcinolone Acetonide (Triamcinolone Acet 0.1% Cr 15 Gm Tube) 1 appln TOP BID TRAMAINE Stop: 08/31/20 08:59 Last Admin: 08/01/20 20:20 Dose: Not Given Documented by: PG Care Time/CCT Total # of Minutes Spent Total Time Spent with Patient: Total time spent is greater than 50% in coordination of care (as documented) at patient's floor/unit and/or counseling patient: Coding Level of Care Code 51614 Subseq Hosp Care Lvl 3 Diagnoses Chest pain R07.9 Chest pain type: unspecified Dyspnea on exertion R06.00 HTN (hypertension) I10 Hypercholesterolemia E78.00 Family history of coronary artery disease Z82.49 (1) Chest pain Chest pain type: unspecified Qualified Code(s): R07.9 - Chest pain, unspecified
[2020-08-02] MEDS: OXYBUTYNIN CHLORIDE 5 MG TAB PO SCH (14:00)
[2020-08-02] MEDS: PROPRANOLOL HCL LA 80 MG CAPCR PO SCH (14:00)
[2020-08-02] MEDS: PYRIDOXINE HCL 50 MG TAB PO SCH (14:01)
[2020-08-02] MEDS: PANTOprazole 40 MG TAB PO SCH (14:01)
[2020-08-02] MEDS: TOPIRAMATE 25 MG TAB PO SCH (14:01)
[2020-08-02] MEDS: POTASSIUM CHLORIDE 20 MEQ TABCR PO SCH (14:02)
[2020-08-02] MEDS: OMEGA-3 (PURIFIED FISH OIL) 1 GM CAP PO SCH (14:02)
[2020-08-02] MEDS: DULoxetine HCL 60 MG CAP PO SCH (14:02)
[2020-08-02] MEDS: DICLOFENAC SOD 1% GEL 100 GM TUBE EXT SCH (14:03)
[2020-08-02] MEDS: TRIAMCINOLONE ACET 0.1% CR 15 GM TUBE TOP SCH (14:04)
[2020-08-02 16:52] VITALS: PULSE 56; O2SAT 98
--- NOTE | 2020-08-02 18:35 | Discharge Summary ---
Date of Service August 02, 2020 Admission HPI Per Admitting Provider Jayda Garcia is a 50yo female with a history of HTN, HLD, angina, chronic lower back pain, GERD, migraine, bladder hyperactivity, depression, and rotator cuff tear (awaiting surgical repair next week) who presented to the ED with chest pain. Around 7pm this evening, patient reports she was doing dishes when she felt a sudden, sharp, severe (9/10) pain in her chest behind her sternum, without any noticeable trigger. The pain slowly moved left under her breast to the side of her ribcage. The pain was associated with mild SOB, nausea, sweating, and dizziness. After about 15 minutes, the pain went from a 9/10 to 1/10 in severity, and her associated symptoms completely resolved. Patient was driven by her to the ED. While in the ED waiting room, patient reports a second episode of the same pattern of symptoms (sternal pain associated with mild SOB, nausea, sweating, and mild dizziness that moved leftwards before resolving), although she reports this second episode was much less severe (4/10) and only lasted about ten minutes. Patient reports the pain during these episodes feels different from her typical angina pain, and denies any history of similar episodes. Patient denies arm pain, jaw pain, vomiting, palpitations, change in vision, or recent illness. Patient notes a history of brief episodes of mild SOB, nausea, sweating, and mild dizziness ("very similar to today's") that have occurred in the past when her chronic back pain flares up. Patient notes a strong family history of cardiac disease including her father having bypass surgery at age 48, patient's sister dying of an AZ at age 54, and her paternal grandmother dying of an AZ at age 58. Patient is a never-smoker. She endorses very little alcohol use and no recreational drug use. Principal Diagnosis musculoskeletal chest pain Discharge Exam gen aaox3 pleasant nad heent nc at mmm breathing unlabored no accessory muscle use good effort skin no rashes no pallor or icterus neuro no focal deficits mental status intact Discharge Data Allergies Allergy/AdvReac Type Severity Reaction Status Date / Time hornet venom Allergy Severe ANAPHYLAXIS Verified 07/31/20 23:31 Sulfa (Sulfonamide Allergy Unknown HIVES Verified 07/31/20 23:31 Antibiotics) valdecoxib Allergy Unknown HIVES WITH Verified 07/31/20 23:31 BEXTRA Consultations 07/31/20 22:23 ED Decision to Admit Stat 08/01/20 15:56 Consult Cardiology Routine Procedures Performed Operation Date: 08/02/20 09:30 Actual Procedures p Cath, Left with Cors and Vent - Kenney Small MD p Cineradiography w/Routine Exam - Kenney Small MD Coronary angiography: 1. Left main coronary artery: LMCA has superior takeoff. No CAD. 2. Left anterior descending: LAD extends to the apex. Gives rise to large D1. No significant CAD. 3. Circumflex: The circumflex is large and dominant. No significant CAD within the circumflex, large branching OM1, PL branches, or PDA. 4. Right coronary artery: RCA is small and nondominant. No significant CAD. Left heart catheterization: 1. Left ventriculography was not performed. 2. No aortic stenosis. 3. Normal LVEDP; 8 mmHg. Procedural notes: 1. LMCA angiography was performed with 5 [place] AL-1 diagnostic catheter. RCA was engaged with 5 [place] JR4 diagnostic catheter. Impression: 1. No angiographic evidence of CAD. 2. Left dominant system. 3. Normal left-sided filling pressures. 4. No aortic stenosis. 5. Noncardiac chest pain. Plan: 1. Can follow-up with PCP or hospitalist service for noncardiac chest discomfort. 2. Continue risk factor modification. Ordered Studies 08/02/20 06:35 CL Cath Imgs for PACS use only Routine Hospital Course (1) Chest pain: with risks - most notably family history - concern initially quite high for ACS. fortunately enzymes negative. stress echo nondiagnostic - d/w pt and family and given fam hx --> proceeded to [facility] which was fortunately reassuring. with no nidus for CAD - became more clear that her chest pain was highly likely from MSK. stable for home. seeing Dr Harp in pain management for injections (was actually to see today - this is being rescheduled) stable for home Total Time Total Time Spent Total Time Spent (In Minutes): <30 Discharge Plan Discharge Items Patient Disposition: Home - Self-Care Reason For Visit: CHEST PAIN Discharge Diagnosis: Chest Pain non cardiac Activity: Resume your previous activity Non-emergency contact: Primary Care Provider Call non-emergency contact if: you have any medication questions Follow-up/Referrals: Karl Potts MD [Primary Care Provider] - Diet: Regular Addtl Attending Provider Instructions: Ms. Garcia it was our pleasure evaluating you for your chest pain. After thoroughly working you up for cardiac causes including by stress echo cardiogram, trending troponin and cardiac catheterization and everything has been negative including a very clean cardiac catheterization showing no significant blockages. There are several non cardiac causes for back pain including reflux or costochondritis, but in your case I think the most likely is that this is related to either referred pain or muscle spasm from your chronic back issues. We have put in to reschedule you with Dr. Harp and hopefully this will provide you some relief. We would also recommend following up with your PCP in the next week or so to explore other non emergent causes of this discomfort especially if it should return. Should you have any other concerning symptoms we are always here and don't hesitate to return to medical care for any concerning symptoms. ACTIVITY RECOMMENDATIONS: Excess manipulation of the wrist should be avoided for the next 24-48 hours. * No lifting over 2 pounds (approximately a 1/2 gallon of milk) with the utilized arm for 24 hours. * No strenuous activity such as bowling or tennis for 3 days. * Keep the site of the procedure covered with a bandage for 24 hours. *You may shower the day after the procedure. Do not take a tub bath or submerge the puncture site in water for the next 3 days. *Do not operate any motorized equipment for 3 days. SPECIAL CARE INSTRUCTIONS: The site may be slightly bruised and sore following your procedure. Should any of the following occur, contact the Dr. who performed your procedure. 1. Redness/inflammation, swelling, chills, or fever, or colored drainage at procedure site within 3-7 days after your procedure. 2. Coldness, discoloration, ongoing numbness, severe pain, or swelling. Expect mild tingling of hand and tenderness at the puncture site for up to three days. If this persists beyond three days, or other symptoms develop, notify the Dr. who performed your procedure. BLEEDING: If the procedure site on your wrist begins to bleed, do not panic 1. Place 1 or 2 fingers firmly just slightly above the insertion site to stop the bleeding. You may be able to feel your pulse as you hold pressure. 2. Lift your finger after 5 minutes to see if the bleeding has stopped. 3. Once the bleeding has stopped, gently wipe the wrist area clean with a bandage. * If the bleeding from your wrist does not stop after 10 minutes, or if there is a large amount of bleeding or spurting, call 911 (do not drive yourself to the hospital). SKIN IRRITATION: * You may experience some redness and/or swelling in the area where radiation was administered. If any skin irritation occurs, please contact your family physician. FOLLOW UP VISIT: Keep any scheduled doctor appointments. Pending Studies at Discharge: No Stand-Alone Forms: My [facility] [employer], Smoking Cessation Medications and DC Order Prescriptions: Continued aspirin 81 mg tablet,delayed release (DR/EC) 81 mg PO DAILY Qty: 90 RF: 3 cetirizine [Zyrtec] 10 mg tablet 10 mg PO DAILY PRN (Reason: allergy symptoms) Qty: 90 RF: 3 omeprazole 40 mg capsule,delayed release(DR/EC) 40 mg PO BID Qty: 180 RF: 3 propranolol 80 mg capsule,extended release 24 hr 80 mg PO DAILY Qty: 90 RF: 1 oxybutynin chloride 5 mg tablet 5 mg PO BID Qty: 180 RF: 3 epinephrine 0.3 mg/0.3 mL auto-injector 0.3 mg IM .COMPLEX PRN (Reason: anaphylaxis) Qty: 1 RF: 3 duloxetine 60 mg capsule,delayed release(DR/EC) 60 mg PO BID Qty: 180 RF: 1 Xenical 120 mg capsule 120 mg PO TID Qty: 90 RF: 5 carisoprodol 350 mg tablet 350 mg PO BID PRN (Reason: muscle pain) Qty: 60 RF: 2 simvastatin 40 mg tablet 40 mg PO QPM Qty: 90 RF: 3 topiramate 25 mg tablet 25 mg PO BID 30 Days Qty: 60 RF: 5 diclofenac sodium 1 % gel 4 g TOP QID Qty: 100 RF: 3 rizatriptan 10 mg tablet See Patient Comments mg PO ONCE PRN (Reason: migraine headache) Qty: 12 RF: 11 trazodone 50 mg tablet 50 - 150 mg PO HS PRN (Reason: insomnia) Qty: 270 RF: 3 triamcinolone acetonide 0.1 % cream 1 applic TOP BID Qty: 80 RF: 3 potassium chloride 10 mEq tablet extended release 10 meq PO DAILY Qty: 30 RF: 5 omega-3 fatty acids [Fish Oil Concentrate] 1,000 mg capsule 2,000 mg PO BID Qty: 360 RF: 3 pyridoxine (vitamin B6) 100 mg tablet 100 mg PO DAILY RF: 0 hydrocortisone 2.5 % cream 1 applic topical TID PRN (Reason: skin irritation) Qty: 30 RF: 11 hydrocodone-acetaminophen 7.5-325 mg tablet See Rx Instructions PO Q8H PRN (Reason: pain) Qty: 180 RF: 0 Discharge Orders: Discharge Order (Routine); Ordered 08/02/20 Ordered By: Kaiden John Admission Data Admit Date/Time: 08/01/20 17:52 Attending Provider: Reji Medina Admit Provider: Mack Portillo Primary Care Provider: Karl Potts Other Providers: Mariam Clements ; Kenney Small ; Bhavin Concepcion Coding Level of Care Code D/C Day Management <30 mins Diagnoses Chest pain R07.9 Chest pain type: unspecified
[2020-08-02 19:12] VITALS: BP 108/68; TEMP 98.4
--- NOTE | 2020-08-03 06:12 | Electrocardiogram Report ---
Test Reason : Blood Pressure : / mmHG Vent. Rate : 057 BPM Atrial Rate : 057 BPM P-R Int : 170 ms QRS Dur : 090 ms QT Int : 460 ms P-R-T Axes : 055 036 030 degrees QTc Int : 447 ms Sinus bradycardia Otherwise normal ECG When compared with ECG of 01-AUG-2020 06:19, No significant change was found Confirmed by Kenney Small ([id number]) on 08/03/2020 6:12:26 AM Referred By: REFERRED SELF Confirmed By:Kenney Small
== END 2020-08-02 19:05 | disposition home or self-care (01) | DRG 287 ==
LOC: ED 19:58 → 2S 19:58 → SUATTDRO 08-01 01:52

== ENCOUNTER 2025-10-01 11:00 | Observation (INO) ==
--- NOTE | 2025-10-01 11:44 | Emergency Department Note ---
History of Present Illness General Chief complaint: Chest Pain Stated complaint: CHEST PAIN Time Seen by Provider: 10/01/25 11:18 History of Present Illness Maximum Pain Intensity: 5 This is a 55-year-old female that presents to the emergency department via private vehicle with complaints of "chest pain". The patient states that she began with chest pain about 1 hour prior to arrival. Left side of the chest rating to the left side of the neck and left shoulder area. No trauma. No injury. She notes that this began while she was exerting herself and picking up an object/box. Has had similar symptoms over the past few days with exertion. Often will become diaphoretic when the chest pain occurs. She denies any fevers, chills, nausea or vomiting. She does note significant family history noting her father had multivessel coronary artery bypass at age 48, Aunt with significant cardiac issues at 47 and her grandmother passed at 54 from an MA. Home Medications Medication Instructions Recorded Confirmed Type cetirizine 10 mg tablet (Zyrtec) 10 mg PO DAILY PRN allergy 03/09/19 10/01/25 Rx symptoms #90 tabs omega-3 fatty acids 1,000 mg 2,000 mg (2 x 1,000 mg) PO BID 05/26/19 10/01/25 Rx capsule (Fish Oil Concentrate) #360 caps pyridoxine (vitamin B6) 100 mg 100 mg PO PM 05/26/19 10/01/25 History tablet aspirin 81 mg tablet,delayed 81 mg PO PM 08/24/20 10/01/25 History release trazodone 50 mg tablet 50 - 150 mg (1 - 3 x 50 mg) PO HS 09/16/22 10/01/25 Rx PRN insomnia #270 tabs diclofenac sodium 1 % topical gel 4 g topical QID PRN Pain #200 grams 02/26/23 10/01/25 Rx triamcinolone acetonide 0.1 % 1 applic topical BID PRN skin 02/26/23 10/01/25 Rx topical cream irritation #80 grams epinephrine 0.3 mg/0.3 mL 0.3 mg (0.3 mL) IM .COMPLEX PRN 04/09/23 10/01/25 Rx injection, auto-injector anaphylaxis 3 doses #2 ea hydrocortisone 2.5 % topical cream 1 applic topical TID PRN skin 09/30/23 10/01/25 Rx irritation #30 grams perfluorohexyloctane (PF) 100 % 1 drp ophthalmic (eye) DAILY 05/04/24 10/01/25 History eye drops (Miebo (PF)) propranolol 120 mg capsule,24 120 mg PO QAM #90 caps 11/04/24 10/01/25 Rx hr,extended release omeprazole 40 mg capsule,delayed 40 mg PO BID #180 caps 11/26/24 10/01/25 Rx release duloxetine 60 mg capsule,delayed 60 mg PO BID #180 caps 01/31/25 10/01/25 Rx release rizatriptan 10 mg tablet See Rx Instructions PO ONCE PRN 03/14/25 10/01/25 Rx migraine headache #12 tabs oxybutynin chloride 5 mg tablet 5 mg PO BID #180 tabs 05/30/25 10/01/25 Rx carisoprodol 350 mg tablet 350 mg PO BID PRN muscle pain #60 07/29/25 10/01/25 Rx tabs potassium chloride 10 mEq 10 meq PO BID #180 tabs 09/05/25 10/01/25 Rx tablet,extended release topiramate 25 mg tablet 25 mg PO .COMPLEX 09/13/25 10/01/25 History hydrocodone 7.5 mg-acetaminophen See Rx Instructions PO Q6H PRN 09/26/25 10/01/25 Rx 325 mg tablet pain M54.16 #180 tabs atorvastatin 40 mg tablet 40 mg PO DAILY 10/01/25 10/01/25 History Allergies Allergy/AdvReac Type Severity Reaction Status Date / Time hornet venom Allergy Severe ANAPHYLAXIS Verified 08/09/25 11:11 Sulfa (Sulfonamide Allergy Intermediate HIVES Verified 08/09/25 11:11 Antibiotics) valdecoxib Allergy Intermediate HIVES WITH Verified 08/09/25 11:11 BEXTRA adhesive tape AdvReac Mild SKIN Verified 08/09/25 11:11 IRRITATION Past Med/Surg History Problem List (Updated 10/01/25 @ 17:04 by Zafar Garcia PA-C) Fall Chronic migraine Lumbar back pain with radiculopathy affecting left lower extremity Left hip pain Left leg swelling Opiate dependence, continuous Postlaminectomy syndrome of lumbosacral region Bilateral sacroiliitis Urinary retention Vertigo Foraminal stenosis of lumbosacral region Numbness of left anterior thigh History of iron deficiency Ataxia Abnormal Romberg test Paresthesias Adhesive capsulitis of left shoulder Shoulder pain Balance disorder Left leg weakness Chronic narcotic use Lumbar back pain with radiculopathy affecting lower extremity Cervical radiculopathy S/P arthroscopy of left shoulder Carpal tunnel syndrome on both sides Benign positional vertigo (Acute) Benign essential hypertension (Chronic) GERD (gastroesophageal reflux disease) (Chronic) Sacrococcygeal pain (Chronic) Therapeutic opioid induced constipation Rotator cuff tear, right Chest pain (Acute) Dyspnea on exertion Family history of coronary artery disease Non-cardiac chest pain resolved Hypokalemia S/P rotator cuff repair Dyslipidemia Right shoulder pain Encounter for pre-operative examination Annual physical exam Colon cancer screening Colon cancer screening Cataract Encounter for mammogram to establish baseline mammogram Tendinitis of left rotator cuff Foot drop, left Left lumbar radiculopathy Fatigue Inflammatory arthritis Fatigue Fatigue Lumbago (Chronic) Lumbar facet joint syndrome (Chronic) Depression (Chronic) HTN (hypertension) (Chronic) Adjustment disorder with emotional disturbance (Chronic) Common migraine without aura (Chronic) GERD without esophagitis (Chronic) Hyperactivity of bladder (Chronic) Hypercholesterolemia (Chronic) Lumbar radiculopathy (Chronic) Medical History History of kidney stones Surgical History H/O bilateral salpingo-oophorectomy History of partial hysterectomy History of repair of rotator cuff History of arthroplasty of right shoulder H/O prior ablation treatment History of anesthesia reaction History of section History of carpal tunnel release History of lithotripsy History of esophagogastroduodenoscopy (EGD) [place] teeth extracted History of cardiac catheterization History of appendectomy Family History Father Diabetes Family history of diabetes mellitus Coronary heart disease Aunt Coronary heart disease Myocardial infarction Other Family history of coronary artery disease No family history of adverse response to anesthesia Social History Smoking Status: Never smoker Second Hand Exposure: No; Do You Dip or Chew Tobacco: No; Hx Alcohol Use: Yes Alcohol type: wine Hx Substance Use: No Preferred Language: Panamanian Communication Ability: Effective Visual Impairment: No Limitations Hearing Ability: Normal Blend Technician Required: No Beliefs That Will Affect Care: None marital status: Current Living Situation: Family Current Living Situation Comment: AND SON current occupational status: employed 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 Feels Safe at Home: Yes Safety Concerns: Feels Safe At This Time Assistive Devices: Contacts and Glasses Review of Systems A total of 10 systems reviewed and were otherwise negative Physical Exam Vital Signs Vital Signs - 24 hr 10/01/25 11:06 10/01/25 11:11 10/01/25 11:35 Temperature 36.6 C Temperature Source Oral Pulse Rate 64 59 L Pulse Rate [Right Finger] Pulse Rate from SpO2 Sensor Pulse Rhythm [Right Finger] Respiratory Rate 20 Respiratory Effort / Characteristics Respiratory Depth Respiratory Pattern Blood Pressure 134/81 Blood Pressure [Left Arm] Blood Pressure Mean 98 Blood Pressure Mean [Left Arm] Blood Pressure Position [Left Arm] Pulse Oximetry 96 98 Oxygen Delivery Method Room Air Sepsis Recent Fever Within 48 Hours No Sepsis New/Unexplained Change in Mental Status N/A Sepsis Action Taken by Nursing No Action Required 10/01/25 11:42 10/01/25 12:30 10/01/25 13:00 Temperature Temperature Source Pulse Rate 55 L 57 L 54 L Pulse Rate [Right Finger] Pulse Rate from SpO2 Sensor Pulse Rhythm [Right Finger] Respiratory Rate 15 14 13 Respiratory Effort / Characteristics Respiratory Depth Respiratory Pattern Blood Pressure 153/87 H 135/78 141/79 H Blood Pressure [Left Arm] Blood Pressure Mean 109 97 99 Blood Pressure Mean [Left Arm] Blood Pressure Position [Left Arm] Pulse Oximetry 98 98 Oxygen Delivery Method Sepsis Recent Fever Within 48 Hours Sepsis New/Unexplained Change in Mental Status Sepsis Action Taken by Nursing 10/01/25 13:30 10/01/25 14:00 10/01/25 15:09 Temperature Temperature Source Pulse Rate 52 L 54 L 54 L Pulse Rate [Right Finger] Pulse Rate from SpO2 Sensor Pulse Rhythm [Right Finger] Respiratory Rate 15 14 17 Respiratory Effort / Characteristics Respiratory Depth Respiratory Pattern Blood Pressure 119/77 148/88 H Blood Pressure [Left Arm] Blood Pressure Mean 91 108 Blood Pressure Mean [Left Arm] Blood Pressure Position [Left Arm] Pulse Oximetry 98 98 Oxygen Delivery Method Sepsis Recent Fever Within 48 Hours Sepsis New/Unexplained Change in Mental Status Sepsis Action Taken by Nursing 10/01/25 15:12 10/01/25 15:21 10/01/25 15:30 Temperature Temperature Source Pulse Rate 59 L 57 L 52 L Pulse Rate [Right Finger] Pulse Rate from SpO2 Sensor Pulse Rhythm [Right Finger] Respiratory Rate 23 21 18 Respiratory Effort / Characteristics Respiratory Depth Respiratory Pattern Blood Pressure Blood Pressure [Left Arm] Blood Pressure Mean Blood Pressure Mean [Left Arm] Blood Pressure Position [Left Arm] Pulse Oximetry Oxygen Delivery Method Sepsis Recent Fever Within 48 Hours Sepsis New/Unexplained Change in Mental Status Sepsis Action Taken by Nursing 10/01/25 15:36 10/01/25 15:36 10/01/25 15:38 Temperature Temperature Source Pulse Rate 49 L Pulse Rate [Right Finger] 51 L Pulse Rate from SpO2 Sensor Pulse Rhythm [Right Finger] Regular Respiratory Rate 18 15 Respiratory Effort / Characteristics Non-Labored Respiratory Depth Normal Respiratory Pattern Regular Blood Pressure 139/75 Blood Pressure [Left Arm] 139/75 Blood Pressure Mean 104 Blood Pressure Mean [Left Arm] 96 Blood Pressure Position [Left Arm] Semi-fowlers Pulse Oximetry 98 Oxygen Delivery Method Room Air Sepsis Recent Fever Within 48 Hours Sepsis New/Unexplained Change in Mental Status Sepsis Action Taken by Nursing 10/01/25 15:38 10/01/25 15:38 10/01/25 15:38 Temperature Temperature Source Pulse Rate Pulse Rate [Right Finger] Pulse Rate from SpO2 Sensor Pulse Rhythm [Right Finger] Respiratory Rate Respiratory Effort / Characteristics Respiratory Depth Respiratory Pattern Blood Pressure 139/75 139/75 139/75 Blood Pressure [Left Arm] Blood Pressure Mean 104 104 104 Blood Pressure Mean [Left Arm] Blood Pressure Position [Left Arm] Pulse Oximetry Oxygen Delivery Method Sepsis Recent Fever Within 48 Hours Sepsis New/Unexplained Change in Mental Status Sepsis Action Taken by Nursing 10/01/25 15:38 10/01/25 15:42 10/01/25 15:51 Temperature Temperature Source Pulse Rate 50 L 51 L Pulse Rate [Right Finger] Pulse Rate from SpO2 Sensor 50 L 52 L Pulse Rhythm [Right Finger] Respiratory Rate 23 16 Respiratory Effort / Characteristics Respiratory Depth Respiratory Pattern Blood Pressure 139/75 Blood Pressure [Left Arm] Blood Pressure Mean 104 Blood Pressure Mean [Left Arm] Blood Pressure Position [Left Arm] Pulse Oximetry 97 97 Oxygen Delivery Method Sepsis Recent Fever Within 48 Hours Sepsis New/Unexplained Change in Mental Status Sepsis Action Taken by Nursing 10/01/25 16:00 10/01/25 16:00 10/01/25 16:00 Temperature Temperature Source Pulse Rate Pulse Rate [Right Finger] Pulse Rate from SpO2 Sensor Pulse Rhythm [Right Finger] Respiratory Rate Respiratory Effort / Characteristics Respiratory Depth Respiratory Pattern Blood Pressure 154/80 H 154/80 H 154/80 H Blood Pressure [Left Arm] Blood Pressure Mean 125 125 125 Blood Pressure Mean [Left Arm] Blood Pressure Position [Left Arm] Pulse Oximetry Oxygen Delivery Method Sepsis Recent Fever Within 48 Hours Sepsis New/Unexplained Change in Mental Status Sepsis Action Taken by Nursing 10/01/25 16:00 10/01/25 16:00 10/01/25 16:00 Temperature Temperature Source Pulse Rate 50 L Pulse Rate [Right Finger] Pulse Rate from SpO2 Sensor 50 L Pulse Rhythm [Right Finger] Respiratory Rate 13 Respiratory Effort / Characteristics Respiratory Depth Respiratory Pattern Blood Pressure 154/80 H 154/80 H Blood Pressure [Left Arm] Blood Pressure Mean 125 125 Blood Pressure Mean [Left Arm] Blood Pressure Position [Left Arm] Pulse Oximetry 96 Oxygen Delivery Method Sepsis Recent Fever Within 48 Hours Sepsis New/Unexplained Change in Mental Status Sepsis Action Taken by Nursing 10/01/25 16:03 Temperature Temperature Source Pulse Rate 51 L Pulse Rate [Right Finger] Pulse Rate from SpO2 Sensor 51 L Pulse Rhythm [Right Finger] Respiratory Rate 14 Respiratory Effort / Characteristics Respiratory Depth Respiratory Pattern Blood Pressure Blood Pressure [Left Arm] Blood Pressure Mean Blood Pressure Mean [Left Arm] Blood Pressure Position [Left Arm] Pulse Oximetry 96 Oxygen Delivery Method Sepsis Recent Fever Within 48 Hours Sepsis New/Unexplained Change in Mental Status Sepsis Action Taken by Nursing VITAL SIGNS - Vital signs and nursing notes were reviewed. Stable and afebrile. GENERAL - 55-year-old female appearing her stated age who is in no acute distress. Communicates well with provider and answers questions appropriately. SKIN - Without rashes. Stable and afebrile. HEAD - NC/AT. EYES - PERRL with EOMI bilaterally. Sclera anicteric. NECK - No nuchal rigidity. LUNGS - Chest wall symmetric without accessory muscle use, intercostals retractions, or central cyanosis. Normal vesicular breath sounds CTA B/L. No wheezes, rales, or rhonchi appreciated. CARDIAC - RRR ABDOMEN - Abdominal contour normal without pulsations or visible masses. BS normoactive all four quadrants. No tenderness, palpable masses, hepatosplenomegaly, or ascites noted. EXTREMITIES - No clubbing or peripheral cyanosis. +5/5 strength noted in UE/LE bilaterally. NEUROLOGIC - Cranial nerves II through XII grossly intact. PSYCH -alert, oriented and pleasant on exam Course Administered Medications Aspirin (Aspirin 81 Mg Ectab) 81 mg PO PM [facility] Stop: 10/31/25 20:59 Last Admin: 10/01/25 22:25 Dose: 81 mg Documented By: Duloxetine HCl (Duloxetine Hcl 60 Mg Cap) 60 mg PO BID TRAMAINE Stop: 10/31/25 20:59 Last Admin: 10/01/25 22:25 Dose: 60 mg Documented By: Fish Oil ([place]-3 (Purified Fish Oil) 1 Gm Cap) 2 cap PO BID TRAMAINE Stop: 10/31/25 20:59 Last Admin: 10/01/25 22:25 Dose: 2 cap Documented By: Heparin Sodium/Dextrose (Heparin 85765 Unit/500 Ml D5w) 25,000 units in 500 mls @ 22 mls/hr IV .[id number] [facility]; Protocol Stop: 10/31/25 18:59 Last Admin: 10/01/25 20:03 Dose: 1,100 units/hr, 22 mls/hr Documented By: Co-signed By: EBONY Miscellaneous (Miebo Drops: Order Awaiting Action) 1 each N/A QS [facility] Stop: 11/01/25 00:00 Last Admin: 10/01/25 23:51 Dose: Not Given Documented By: Nitroglycerin (Nitroglycerin 2% Ointment 30gm Tube) 1 inch EXT Q6 [facility] Stop: 10/31/25 18:24 Last Admin: 10/02/25 06:02 Dose: Not Given Documented By: Admin: 10/01/25 23:51 Dose: Not Given Documented By: Admin: 10/01/25 20:07 Dose: Not Given Documented By: Oxybutynin Chloride (Oxybutynin Chloride 5 Mg Tab) 5 mg PO BID [facility] Stop: 10/31/25 20:59 Last Admin: 10/01/25 22:26 Dose: 5 mg Documented By: Pantoprazole Sodium (Pantoprazole 40 Mg Tab) 40 mg PO BID [facility] Stop: 10/31/25 20:59 Last Admin: 10/01/25 22:26 Dose: 40 mg Documented By: Potassium Chloride (Potassium Chloride 10 Meq Tabcr) 10 meq PO BID [facility] Stop: 10/31/25 20:59 Last Admin: 10/01/25 22:26 Dose: 10 meq Documented By: Pyridoxine HCl (Pyridoxine Hcl 50 Mg Tab) 100 mg PO PM [facility]INE Stop: 10/31/25 20:59 Last Admin: 10/01/25 22:26 Dose: 100 mg Documented By: Topiramate (Topiramate 25 Mg Tab) 25 mg PO BID TRAMAINE Stop: 10/31/25 20:59 Last Admin: 10/01/25 22:26 Dose: 25 mg Documented By: Discontinued Medications Aspirin (Aspirin Chew 324 Mg) 324 mg PO NOW STA Stop: 10/01/25 11:38 Last Admin: 10/01/25 11:49 Dose: 324 mg Documented By: lupe Heparin Sodium/Dextrose (Heparin Iv Adult Wt-Based Standard *No* Initial Bolus Protocol) 1 each IV ONE STA; Protocol Stop: 10/01/25 18:26 Last Admin: 10/01/25 20:06 Dose: 1 each Documented By: Ioversol (Optiray 320 125ml) 119 ml IV ONCE ONE Stop: 10/01/25 16:17 Last Admin: 10/01/25 16:16 Dose: 119 ml Documented By: SANTINO Medical Decision Making Laboratory Data 10/01/25 12:03 10/01/25 12:03 Lab Results 10/01/25 10/01/25 Range/Units 12:03 14:19 WBC 7.97 (4.8-10.8) K/ul RBC 4.66 (4.20-5.40) M/uL Hgb 14.0 (12.0-16.0) g/dL Hct 41.7 (37.0-47.0) % MCV 89.5 (80.0-100.0) fL MCH 30.0 (25.0-34.0) pg MCHC 33.6 (32.0-36.0) g/dL RDW Std Deviation 41.2 (36.4-46.3) fL RDW Coeff of Katey 12.6 (11.5-14.5) % Plt Count 275 (130-400) K/uL MPV 8.6 L (9.4-12.4) fL Immature Gran % (Auto) 0.4 % Neut % (Auto) 44.1 % Lymph % (Auto) 43.2 % [place] % (Auto) 8.9 % Eos % (Auto) 2.6 % Baso % (Auto) 0.8 % Neut # (Auto) 3.52 (1.40-6.50) K/uL Lymph # (Auto) 3.44 H (1.20-3.40) K/uL [place] # (Auto) 0.71 H (0.11-0.59) K/uL Eos # (Auto) 0.21 (0.00-0.50) K/uL Baso # (Auto) 0.06 (0.00-0.20) K/uL Immature Gran # (Auto) 0.03 (0.01-0.20) K/uL PT 10.2 (9.0-12.0) Seconds INR 1.0 (0.9-1.1) APTT 28 (21-31) Seconds PTT Ratio 1.0 D-Dimer 560 H* (0-500) ug/L FEU Sodium 139 (136-145) mmol/L Potassium 3.9 (3.5-5.1) mmol/L Chloride 107 (98-107) mmol/L Carbon Dioxide 26 (21-32) mmol/L Anion Gap 6 (3-11) BUN 9 (6-23) mg/dl Creatinine 0.77 (0.6-1.2) mg/dl Est Cr Clr Drug Dosing 80.7 ml/min eGFR 91.04 BUN/Creatinine Ratio 11.7 (10-20) Glucose 82 (70-99(Fasting)) mg/dl Calcium 9.7 (8.6-10.3) mg/dl Total Bilirubin 0.5 (0.2-1.0) mg/dl AST 28 (13-39) U/L ALT 26 (7-52) U/L Alkaline Phosphatase 93 (34-104) U/L Troponin I High Sens < 2.3 < 2.3 (0-14) pg/ml Total Protein 7.5 (6.0-8.3) gm/dl Albumin 4.6 (3.4-5.0) gm/dl Globulin 2.9 (2.5-4.0) gm/dl Albumin/Globulin Ratio 1.6 (0.9-2) Lipase 52 (11-82) U/L Imaging Data Radiologist's Impression: Chest X-Ray 10/01/25 11:11 XR chest 1V not portable CLINICAL HISTORY: Chest pain, nonspecific COMPARISON STUDY: 07/31/2020 FINDINGS: Heart size and pulmonary vasculature are normal. No consolidation or pleural effusion. No pneumothorax. IMPRESSION: No acute findings. ACT 112: Negative or not required by law. Electronically signed by: Reid Garcia M.D. 10/01/2025 12:06 PM HISTORY: Chest pain. Elevated D-dimer TECHNIQUE: CT angiography of the chest was performed with contrast. Images are presented in axial, sagittal, and coronal reformats. 3D MIP reconstructions are also provided. COMPARISON: None. FINDINGS: Lungs: No focal lung consolidation. No pneumothorax or pleural effusion. No suspicious pulmonary nodules. The central tracheobronchial tree is patent. Heart/Mediastinum: Normal heart size. No pericardial effusion. Coronary artery atherosclerotic calcifications are absent. The thoracic esophagus is unremarkable. No suspicious mediastinal or hilar lymph nodes. Included thyroid gland is unremarkable. Vasculature: No thoracic aortic aneurysm. No evidence of aortic dissection. Main pulmonary artery is normal in caliber. No evidence of acute pulmonary embolism or acute aortic process. Soft Tissues: No enlarged axillary lymph nodes. Upper Abdomen: Unremarkable. Bones: No acute osseous abnormality. IMPRESSION: * No evidence of acute pulmonary embolism or acute aortic process. * No acute cardiopulmonary findings. * Chronic and/or incidental findings as above. Electronically signed by Jayce Yoon 10-01-2025 5:54 PM MDM Narrative Patient was seen and evaluated as above in room A11b. Review was performed of nursing notes and vital signs. I did review pertinent previous visits and patient history. After obtaining a thorough history and physical examination the above work up was performed. An EKG was performed. This reveals normal sinus rhythm at rate of 62 bpm. QTc 430. QRS 92. No ST elevation on this rhythm tracing. Options of care were discussed with the patient. IV access was established and labs were drawn. Oral aspirin was ordered. Labs revealed no leukocytosis or concerning anemia. Coags normal. No evidence of kidney or liver failure. Troponin negative. Lipase normal. Chest x-ray obtained and is as above. This was essentially negative. Repeat troponin negative. D-dimer elevated prompting CTA of the chest. This was negative for PE. I do believe that further evaluation and management in the inpatient setting is warranted. Case discussed with the hospitalist service. Please refer to further documentation regarding her stay. GCS: 15 In the evaluation and treatment of this patient the following differential diagnoses were entertained: MA, PE, pneumonia, dissection, pericarditis, costochondritis, among others. Impression & Plan Chest pain Discharge Plan Visit Data Chief Complaint: Chest Pain Stated Complaint: CHEST PAIN ED Provider: Kahlil Culver ED Midlevel Provider: Zafar Garcia Discharge Problem: Chest pain Patient Disposition: Admitted As Inpatient Condition: Good Discharge Instructions Interventions: ED Discharge Assessment Last Done: 10/01/25 18:25
[2025-10-01] MEDS: ASPIRIN CHEW 324 MG PO STA (11:49)
--- NOTE | 2025-10-01 12:08 | XRay Report ---
XR chest 1V not portable CLINICAL HISTORY: Chest pain, nonspecific COMPARISON STUDY: 07/31/2020 FINDINGS: Heart size and pulmonary vasculature are normal. No consolidation or pleural effusion. No p neumothorax. IMPRESSION: No acute findings. ACT 112: Negative or not required by law. Electronically signed by: Reid Garcia M.D. 10/01/2025 12:06 PM
[2025-10-01 12:22] LABS: Hematocrit (blood only) 41.7 % (37.0-47.0); Hemoglobin 14.0 g/dL (12.0-16.0); Immature Granulocytes # (auto) 0.03 K/uL (0.01-0.20); Immature Granulocytes % (auto) 0.4 %; Mean Corpuscular Hemoglobin 30.0 pg (25.0-34.0); Mean Corpuscular Volume 89.5 fL (80.0-100.0); Platelet Count 275 K/uL (130-400); RDW Standard Deviation 41.2 fL (36.4-46.3); Red Blood Count 4.66 M/uL (4.20-5.40); White Blood Count 7.97 K/ul (4.8-10.8)
[2025-10-01 12:38] LABS: Alanine Aminotransferase 26 U/L (7-52); Albumin Globulin Ratio 1.6 (0.9-2); Albumin Level 4.6 gm/dl (3.4-5.0); Alkaline Phosphatase 93 U/L (34-104); Anion Gap 6 (3-11); Bilirubin,Total 0.5 mg/dl (0.2-1.0); Blood Urea Nitrogen 9 mg/dl (6-23); Calcium 9.7 mg/dl (8.6-10.3); Carbon Dioxide 26 mmol/L (21-32); Chloride 107 mmol/L (98-107); Creatinine Clr Calc Pharmacy 80.7 ml/min; Globulin 2.9 gm/dl (2.5-4.0); Glucose 82 mg/dl (70-99(Fasting)); Lipase 52 U/L (11-82); Potassium 3.9 mmol/L (3.5-5.1); Sodium 139 mmol/L (136-145); Total Protein 7.5 gm/dl (6.0-8.3)
[2025-10-01 12:51] LABS: INR 1.0 (0.9-1.1); Partial Thromboplastin Time 28 Seconds (21-31); Prothrombin Time 10.2 Seconds (9.0-12.0)
--- NOTE | 2025-10-01 14:37 | History & Physical Report ---
"Date of Service October 01, 2025 Assessment & Plan (1) Chest pain: (2) HTN (hypertension): (3) Hypercholesterolemia: (4) GERD (gastroesophageal reflux disease): (5) Chronic migraine: Plan Pt is a 55 y/o F with a PMHx significant for HTN, HLD, GERD, hyperactive bladder, chronic migraine w/out aura, BPPV, lumbar pain w/ Lt radiculopathy, cervical radiculopathy, Opiate dependence depression, and adjustment disorder, who presented to the ED c/o chest pain. Pt notes similar episode in 2019. Pt notes similar episode in 2019. [facility] admission from 07/31/2020 - 08/02/2020 revealed dobutamine stress test with no ischemic changes or chest discomfort despite being close to a hypertensive response. Pt additionally underwent cardiac catheterization on 08/02/2020 which revealed: no angiographic evidence of CAD, Left dominant system, Normal lt-sided filling pressures, no aortic stenosis. Pt was not believed to be experiencing cardiac CP at that time and was discharged home. NOTE: Pt states she has aunt who experienced vasospastic ND at 50 yrs old. Father w/ quadruple bypass at 48, additional aunt who passed from ND @54, and a cousin -42yrs- who recently had cardiac stents placed d/t CAD. #Chest Pain - FHx of young ND's; 10/01 EKG consistent w/ EKG from 2022; ED Serial Trops x3 all <2.3; 10/01 D-dimer 560; 10/01 CXR w/out any evidence of acute processes; 10/01 CTA w/ no atherosclerotic calcifications seen in coronary arteries, no evidence of PE, and no evidence of other underlying cardiopulmonary issues. -Consult Cardiology; will message in AM -Echocardiogram pending -Cardiac Stress test -IV Heparin Drip - will continue until cardiology assessment -Nitropaste 2% Q6H for CP -Continue ASA 81mg daily + Propranolol 120mg Daily -Serial Troponins -CBC, BMP in AM #HTN | HLD - No acute concerns -Continue ASA 81mg PO daily -Continue Propanolol ER 120 mg PO QAM -Continue Atorvastatin 40mg PO QAM -Continue [place]-3 2000 mg PO BID -Fasting Lipid Panel in AM #GERD - No acute concerns -Hold Omeprazole, nonformulary -Protonix 40mg PO BID #Hypokalemia - Potassium 3.9 in ED -Continue KCl 10 mEq PO BID -Trend BMP #Chronic Migraine w/out Aura - No acute concerns -Continue Topiramate 25mg PO daily -Continue Rizatriptan 10mg PO prn migraine -IV Morphine 1mg Q2H prn - may help w/ exacerbation of H/A from nitropaste #Opioid Dependence #Lumbar pain w/ lt sided radiculopathy | Cervical Radiculopathy - No acute concerns -Continue topical Voltaren gel -Continue Carisoprodol 350 mg PO BID muscle pain -Continue [place] 7.5/325 #Hyperactive Bladder - No acute concerns -Continue Oxybutynin chloride 5mg PO BID #Depression | Adjustment Disorder | Insomnia - No acute concerns -Continue Trazodone 50mg po HS -Continue Duloxetine 60mg PO BID #BPPV - No acute concerns, not managed with medication VTE Proph: Heparin drip Dispo: Admit Med/Tele History of Present Illness Chief Complaint: Chest Pain Primary Care Provider: Karl Potts MD Pt is a 55 y/o F with a PMHx significant for HTN, HLD, GERD, urinary retention, hyperactive bladder, chronic migraine w/out aura, BPPV, NOAH, Ataxia(?), lumbar pain w/ Lt radiculopathy, cervical radiculopathy, Opiate dependence depression, and adjustment disorder, who presented to the ED c/o chest pain. Pt states the while she was at work early this AM, she experienced a sharp chest pain while she was trying to move a box. Pt notes that once the pain started, it started to radiate up into her neck and into her lt shoulder. She additionally became very nauseous, dizzy, and diaphoretic - pt notes that she was dripping with sweat. Pt revealed that less severe episodes similar to this have been happening intermittently for 2wks [employer], oftentimes while she is preforming tasks such as working/grocery shopping. Pt endorses fatigue, difficulty sleeping, chest pain/pressure, diaphoresis, occasional palpitations, nausea, and decrease in appetite. She additionally notes an increasing frequency in her migraines and fever/chills that are associated with them, per pt. Pt additionally admits to mild rhinorrhea and sore throat. Pt denies vertigo, congestion, cough, SOB, vomiting, diarrhea, urinary frequency/urgency and dysuria. Pt states that she had a similar episode to this in 2019. Further review of charts on 07/31-08/02/2020 revealed that the patient underwent a dobutamine stress echo in addition to a cardiac catheterization. At that time the dobutamine stress test revealed no ischemic changes or chest discomfort despite being quite close to a hypertensive response. She underwent cardiac catheterization on 08/02/2020 which revealed the following: no angiographic evidence of CAD, Left dominant system, Normal lt-sided filling pressures, no aortic stenosis. Pt was not believed to be experiencing cardiac CP at that time and was discharged home. While pt was in the ED, she received an EKG that was without significant change when compared to EKG from 10/09/2022. D-dimer was elevated at 560 on admission w/ serial troponin x3 all being <2.3. CXR at that time was without any acute findings. CTA demonstrated no atherosclerotic calcifications, evidence of pulmonary embolism, or evidence of other underlying cardiopulmonary issues. Pertinent Family Hx: Pt today notes that she has a strong FHx of family members with cardiac related illness. She notes that her father had a quadruple bypass at 48yrs old and has since had several stents placed. She additionally notes that her Aunt experienced an ND following a vasospastic event at 50 yrs old. Separately she had another Aunt pass away at 54 from CAD related incident and has a 42 y/o female cousin who had stents placed in relation to CAD. Allergies Allergy/AdvReac Type Severity Reaction Status Date / Time hornet venom Allergy Severe ANAPHYLAXIS Verified 08/09/25 11:11 Sulfa (Sulfonamide Allergy Intermediate HIVES Verified 08/09/25 11:11 Antibiotics) valdecoxib Allergy Intermediate HIVES WITH Verified 08/09/25 11:11 BEXTRA adhesive tape AdvReac Mild SKIN Verified 08/09/25 11:11 IRRITATION Home Medications Medication Instructions Recorded Confirmed Type cetirizine 10 mg tablet (Zyrtec) 10 mg PO DAILY PRN allergy 03/09/19 10/01/25 Rx symptoms #90 tabs omega-3 fatty acids 1,000 mg 2,000 mg (2 x 1,000 mg) PO BID 05/26/19 10/01/25 Rx capsule (Fish Oil Concentrate) #360 caps pyridoxine (vitamin B6) 100 mg 100 mg PO PM 05/26/19 10/01/25 History tablet aspirin 81 mg tablet,delayed 81 mg PO PM 08/24/20 10/01/25 History release trazodone 50 mg tablet 50 - 150 mg (1 - 3 x 50 mg) PO HS 09/16/22 10/01/25 Rx PRN insomnia #270 tabs diclofenac sodium 1 % topical gel 4 g topical QID PRN Pain #200 grams 02/26/23 10/01/25 Rx triamcinolone acetonide 0.1 % 1 applic topical BID PRN skin 02/26/23 10/01/25 Rx topical cream irritation #80 grams epinephrine 0.3 mg/0.3 mL 0.3 mg (0.3 mL) IM .COMPLEX PRN 04/09/23 10/01/25 Rx injection, auto-injector anaphylaxis 3 doses #2 ea hydrocortisone 2.5 % topical cream 1 applic topical TID PRN skin 09/30/23 10/01/25 Rx irritation #30 grams perfluorohexyloctane (PF) 100 % 1 drp ophthalmic (eye) DAILY 05/04/24 10/01/25 History eye drops ([place] (PF)) propranolol 120 mg capsule,24 120 mg PO QAM #90 caps 11/04/24 10/01/25 Rx hr,extended release omeprazole 40 mg capsule,delayed 40 mg PO BID #180 caps 11/26/24 10/01/25 Rx release duloxetine 60 mg capsule,delayed 60 mg PO BID #180 caps 01/31/25 10/01/25 Rx release rizatriptan 10 mg tablet See Rx Instructions PO ONCE PRN 03/14/25 10/01/25 Rx migraine headache #12 tabs oxybutynin chloride 5 mg tablet 5 mg PO BID #180 tabs 05/30/25 10/01/25 Rx carisoprodol 350 mg tablet 350 mg PO BID PRN muscle pain #60 07/29/25 10/01/25 Rx tabs potassium chloride 10 mEq 10 meq PO BID #180 tabs 09/05/25 10/01/25 Rx tablet,extended release topiramate 25 mg tablet 25 mg PO .COMPLEX 09/13/25 10/01/25 History hydrocodone 7.5 mg-acetaminophen See Rx Instructions PO Q6H PRN 09/26/25 10/01/25 Rx 325 mg tablet pain M54.16 #180 tabs atorvastatin 40 mg tablet 40 mg PO DAILY 10/01/25 10/01/25 History Past Med/Surg History Problem List (Updated 10/01/25 @ 17:04 by Zafar Garcia PA-C) Fall Chronic migraine Lumbar back pain with radiculopathy affecting left lower extremity Left hip pain Left leg swelling Opiate dependence, continuous Postlaminectomy syndrome of lumbosacral region Bilateral sacroiliitis Urinary retention Vertigo Foraminal stenosis of lumbosacral region Numbness of left anterior thigh History of iron deficiency Ataxia Abnormal Romberg test Paresthesias Adhesive capsulitis of left shoulder Shoulder pain Balance disorder Left leg weakness Chronic narcotic use Lumbar back pain with radiculopathy affecting lower extremity Cervical radiculopathy S/P arthroscopy of left shoulder Carpal tunnel syndrome on both sides Benign positional vertigo (Acute) Benign essential hypertension (Chronic) GERD (gastroesophageal reflux disease) (Chronic) Sacrococcygeal pain (Chronic) Therapeutic opioid induced constipation Rotator cuff tear, right Chest pain (Acute) Dyspnea on exertion Family history of coronary artery disease Non-cardiac chest pain resolved Hypokalemia S/P rotator cuff repair Dyslipidemia Right shoulder pain Encounter for pre-operative examination Annual physical exam Colon cancer screening Colon cancer screening Cataract Encounter for mammogram to establish baseline mammogram Tendinitis of left rotator cuff Foot drop, left Left lumbar radiculopathy Fatigue Inflammatory arthritis Fatigue Fatigue Lumbago (Chronic) Lumbar facet joint syndrome (Chronic) Depression (Chronic) HTN (hypertension) (Chronic) Adjustment disorder with emotional disturbance (Chronic) Common migraine without aura (Chronic) GERD without esophagitis (Chronic) Hyperactivity of bladder (Chronic) Hypercholesterolemia (Chronic) Lumbar radiculopathy (Chronic) Medical History History of kidney stones Surgical History H/O bilateral salpingo-oophorectomy History of partial hysterectomy History of repair of rotator cuff History of arthroplasty of right shoulder H/O prior ablation treatment History of anesthesia reaction History of section History of carpal tunnel release History of lithotripsy History of esophagogastroduodenoscopy (EGD) [place] teeth extracted History of cardiac catheterization History of appendectomy Family History Father Diabetes Family history of diabetes mellitus Coronary heart disease Aunt Coronary heart disease Myocardial infarction Other Family history of coronary artery disease No family history of adverse response to anesthesia Social History Smoking Status: Never smoker Second Hand Exposure: No; Do You Dip or Chew Tobacco: No; Hx Alcohol Use: Yes Alcohol type: wine Hx Substance Use: No Preferred Language: Belgian Communication Ability: Effective Visual Impairment: No Limitations Hearing Ability: Normal Inside Meter Tester Required: No Beliefs That Will Affect Care: None marital status: Current Living Situation: Family Current Living Situation Comment: AND SON current occupational status: employed 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 VS: reviewed, remarkable - BP 149/75 Skin: Warm and dry; no lesions or ulcerations Respiratory: CTA bilat, no adventitious sounds noted. Chest expansion is full and symmetrical Cardio: RRR no murmurs Abdomen: Round, normoactive BS x4, nontender to palpation MSK: FROM of extremities, no deformities Extremities: no edema Neuro: A&Ox4, cooperative Results & Data Results & Data Vital Signs (Past 12 Hours) Vital Signs Temp Pulse Resp BP Pulse Ox O2 Del Method 10/01/25 14:00 54 L 14 148/88 H 98 10/01/25 13:30 52 L 15 119/77 98 10/01/25 13:00 54 L 13 141/79 H 98 10/01/25 12:30 57 L 14 135/78 98 10/01/25 11:42 55 L 15 153/87 H 10/01/25 11:35 59 L 10/01/25 11:11 98 10/01/25 11:06 97.9 F 64 20 134/81 96 Room Air Laboratory Results Reviewed: CBC, CMP, Troponin, D-dimer, Lipase Diagnostic Findings Reviewed: CXR, CTA chest Supervising Physician Co-Signing Physician Notes The patient was seen by me. Chart reviewed. Case discussed with VEDA Conde. Agree with assessment and plan. Cardiology consult requested and pending PG Care Time/CCT Total # of Minutes Spent Total Time Spent with Patient: Total time spent is greater than 50% in coordination of care (as documented) at patient's floor/unit and/or counseling patient: Coding Level of Care Code 82094 INT INP/OBS CARE 3/75MIN Diagnoses Chest pain R07.9 HTN (hypertension) I10 Hypercholesterolemia E78.00 GERD (gastroesophageal reflux disease) K21.9 Chronic migraine"
[2025-10-01] MEDS: OPTIRAY 320 125ml IV ONE (16:16)
--- NOTE | 2025-10-01 17:54 | CT Scan Report ---
HISTORY: Chest pain. Elevated D-dimer TECHNIQUE: CT angiography of the chest was performed with contrast. Images are presented in axial, sagittal, and coronal reformats. 3D MIP reconstructions are also provided. COMPARISON: None. FINDINGS: Lungs: No focal lung consolidation. No pneumothorax or pleural effusion. No suspicious pulmonary nodules. The central tracheobronchial tree is patent. Heart/Mediastinum: Normal heart size. No pericardial effusion. Coronary artery atherosclerotic calcifications are absent. The thoracic esophagus is unremarkable. No suspicious mediastinal or hilar lymph nodes. Included thyroid gland is unremarkable. Vasculature: No thoracic aortic aneurysm. No evidence of aortic dissection. Main pulmonary artery is normal in caliber. No evidence of acute pulmonary embolism or acute aortic process. Soft Tissues: No enlarged axillary lymph nodes. Upper Abdomen: Unremarkable. Bones: No acute osseous abnormality. IMPRESSION: * No evidence of acute pulmonary embolism or acute aortic process. * No acute cardiopulmonary findings. * Chronic and/or incidental findings as above. Electronically signed by Jayce Yoon 10-01-2025 5:54 PM
[2025-10-01] MEDS ORDERED: DICLOFENAC SOD 1% GEL 100 GM TUBE EXT PRN (18:25)
[2025-10-01] MEDS ORDERED: CETIRIZINE HCL 10 MG TABLET PO PRN (18:25)
[2025-10-01] MEDS ORDERED: POLYETHYLENE (MIRALAX) 17 GM PACK PO PRN (18:25)
[2025-10-01] MEDS ORDERED: HYDROCODONE/ACETAMINOPHEN 7.5/325MG TAB PO PRN (18:25)
[2025-10-01] MEDS ORDERED: ONDANSETRON INJ 2 MG/ML 2 ML VIAL IV PRN (18:25)
[2025-10-01] MEDS ORDERED: MoRPHine SULFATE 2 MG/ML CARP IV PRN (18:25)
[2025-10-01] MEDS ORDERED: ACETAMINOPHEN 325 MG TAB PO PRN (18:25)
[2025-10-01] MEDS ORDERED: CARISOPRODOL 350 MG TABLET PO PRN (18:25)
[2025-10-01] MEDS: HEPARIN 25000 UNIT/500 ML D5W 25,000 UNITS/500 ML BAG IV SCH (20:03)
[2025-10-01] MEDS: Heparin IV Adult Wt-Based Standard *NO* INITIAL Bolus Protocol IV STA (20:06)
[2025-10-01] MEDS: NITROGLYCERIN 2% OINTMENT 30GM TUBE EXT SCH (20:07)
[2025-10-01] MEDS: ASPIRIN 81 MG ECTAB PO SCH (22:25)
[2025-10-01] MEDS: OMEGA-3 (PURIFIED FISH OIL) 1 GM CAP PO SCH (22:25)
[2025-10-01] MEDS: PYRIDOXINE HCL 50 MG TAB PO SCH (22:26)
[2025-10-01] MEDS: TOPIRAMATE 25 MG TAB PO SCH (22:26)
[2025-10-01] MEDS: POTASSIUM CHLORIDE 10 MEQ TABCR PO SCH (22:26)
[2025-10-02 03:18] LABS: ANTI-Xa, UFH(UnfractionatedHep 0.63 IU/ml (0.3-0.7)
[2025-10-02 07:00] LABS: Hematocrit (blood only) 35.7 % (37.0-47.0); Hemoglobin 12.2 g/dL (12.0-16.0); Mean Corpuscular Hemoglobin 30.4 pg (25.0-34.0); Mean Corpuscular Volume 89.0 fL (80.0-100.0); Platelet Count 212 K/uL (130-400); RDW Standard Deviation 40.6 fL (36.4-46.3); Red Blood Count 4.01 M/uL (4.20-5.40); White Blood Count 7.48 K/ul (4.8-10.8)
[2025-10-02 07:44] LABS: Anion Gap 6.0 (3-11); Blood Urea Nitrogen 10.0 mg/dl (6-23); Calcium 9.2 mg/dl (8.6-10.3); Carbon Dioxide 27.0 mmol/L (21-32); Chloride 109.0 mmol/L (98-107); Cholesterol 185.0 mg/dl (0-200); Creatinine Clr Calc Pharmacy 84.2 ml/min; Glucose 90.0 mg/dl (70-99(Fasting)); HDL Cholesterol 69.0 mg/dl; Potassium 4.3 mmol/L (3.5-5.1); Sodium 142.0 mmol/L (136-145); Triglycerides 119.0 mg/dl (0-150)
[2025-10-02 08:10] LABS: ALC (manual) 5.09 K/uL (1.2-3.4); ANC (manual) 2.24 K/uL (1.4-6.5); Large Granular Lymph # (manua 1.57 K/uL; Large Granular Lymph % (manual) 21 %
--- NOTE | 2025-10-02 08:10 | Hospitalist Progress Note ---
"Date of Service October 02, 2025 Assessment & Plan (1) Chest pain: (2) HTN (hypertension): (3) Hypercholesterolemia: (4) GERD (gastroesophageal reflux disease): (5) Chronic migraine: Plan Pt is a 55 y/o F with a PMHx significant for HTN, HLD, GERD, hyperactive bladder, chronic migraine w/out aura, BPPV, lumbar pain w/ Lt radiculopathy, cervical radiculopathy, Opiate dependence depression, and adjustment disorder, who presented to the ED c/o chest pain. Pt notes similar episode in 2019. Pt notes similar episode in 2019. [facility] admission from 07/31/2020 - 08/02/2020 revealed dobutamine stress test with no ischemic changes or chest discomfort despite being close to a hypertensive response. Pt additionally underwent cardiac catheterization on 08/02/2020 which revealed: no angiographic evidence of CAD, Left dominant system, Normal lt-sided filling pressures, no aortic stenosis. Pt was not believed to be experiencing cardiac CP at that time and was discharged home. NOTE: Pt states she has aunt who experienced vasospastic CA at 50 yrs old. Father w/ quadruple bypass at 48, additional aunt who passed from CA @54, and a cousin -42yrs- who recently had cardiac stents placed d/t CAD. #Chest Pain - FHx of young CA's; 10/01 EKG consistent w/ EKG from 2022; ED Serial Trops x3 all <2.3; 10/01 D-dimer 560; 10/01 CXR w/out any evidence of acute processes; 10/01 CTA w/ no atherosclerotic calcifications seen in coronary arteries, no evidence of PE, and no evidence of other underlying cardiopulmonary issues; Serial troponin's remain negative 10/02 -Consult Cardiology; -Echocardiogram pending -Cardiac Stress test -IV Heparin Drip - will continue until cardiology assessment -Nitropaste 2% Q6H for CP -Continue ASA 81mg daily + Propranolol 120mg Daily -CBC, BMP in AM #HTN | HLD - No acute concerns; 10/02 Lipid Panel Trigs 119, cholesterol 185, LDL 92, VLDL 24, HDL 69 -Continue ASA 81mg PO daily -Continue Propranolol ER 120 mg PO QAM -Continue Atorvastatin 40mg PO QAM -Continue [place]-3 2000 mg PO BID #GERD - No acute concerns -Hold Omeprazole, nonformulary -Protonix 40mg PO BID #Hypokalemia - Potassium 3.9 in ED -Continue KCl 10 mEq PO BID -Trend BMP #Chronic Migraine w/out Aura - No acute concerns -Continue Topiramate 25mg PO daily -Continue Rizatriptan 10mg PO prn migraine -IV Morphine 1mg Q2H prn - may help w/ exacerbation of H/A from nitropaste #Opioid Dependence #Lumbar pain w/ lt sided radiculopathy | Cervical Radiculopathy - No acute concerns -Continue topical Voltaren gel -Continue Carisoprodol 350 mg PO BID muscle pain -Continue [place] 7.5/325 #Hyperactive Bladder - No acute concerns -Continue Oxybutynin chloride 5mg PO BID #Depression | Adjustment Disorder | Insomnia - No acute concerns -Continue Trazodone 50mg po HS -Continue Duloxetine 60mg PO BID #BPPV - No acute concerns, not managed with medication VTE Proph: Heparin drip Dispo: Admit Med/Tele Admission and Anticipated Discharge Date Admission Date: October 01, 2025 Review of Systems Review of Systems: All systems reviewed & are unremarkable except as noted in Subjective Physical Exam Physical Exam: General: Pt is a 55 y/o overweight F in anxious in bed. VS: reviewed, remarkable - BP 149/75 Skin: Warm and dry; no lesions or ulcerations Respiratory: CTA bilat, no adventitious sounds noted. Chest expansion is full and symmetrical Cardio: RRR no murmurs Abdomen: Round, normoactive BS x4, nontender to palpation MSK: FROM of extremities, no deformities Extremities: no edema Neuro: A&Ox4, cooperative Results & Data Results & Data Vital Signs (Past 12 Hours) Vital Signs Temp Pulse Pulse Resp BP Pulse Ox O2 Del Method 10/02/25 05:33 55 L 10/02/25 04:10 97.7 F 56 L 16 120/67 95 Room Air 10/02/25 01:10 52 L 10/02/25 00:36 97.4 F L 54 L 16 136/69 98 Room Air 10/01/25 23:56 98.1 F 52 L 18 135/67 94 Room Air 10/01/25 22:00 54 L 16 138/82 97 Room Air Laboratory Results Reviewed: CBC, BMP, Serial Trops, Lipid Panel PG Care Time/CCT Total # of Minutes Spent Total Time Spent with Patient: Total time spent is greater than 50% in coordination of care (as documented) at patient's floor/unit and/or counseling patient: Coding Diagnoses Chest pain R07.9 HTN (hypertension) I10 Hypercholesterolemia E78.00 GERD (gastroesophageal reflux disease) K21.9 Chronic migraine"
[2025-10-02] MEDS: ATORVASTATIN 40 MG TAB PO SCH (08:25)
[2025-10-02] MEDS: PROPRANOLOL HCL 60 MG LA CAP PO SCH (08:26)
--- NOTE | 2025-10-02 11:00 | Electrocardiogram Report ---
Test Reason : Blood Pressure : */* mmHG Vent. Rate : 62 BPM Atrial Rate : 62 BPM P-R Int : 140 ms QRS Dur : 92 ms QT Int : 424 ms P-R-T Axes : 56 22 39 degrees QTcB Int : 430 ms Normal sinus rhythm Poor R-wave progression - consider lead placement Abnormal ECG When compared with ECG of 09-Oct-2022 10:20, No significant change was found Confirmed by Arabella Myles ([id number]) on 10/02/2025 11:00:22 AM Referred By: REFERRED SELF Confirmed By: Arabella Myles
[2025-10-02 12:15] VITALS: RESP 16
[2025-10-02] MEDS: RIZATRIPTAN BENZOATE 10 MG TAB PO ONE (14:00)
[2025-10-02 14:30] VITALS: BP 122/74; TEMP 98.1; O2SAT 96
--- NOTE | 2025-10-02 15:05 | Discharge Summary ---
"Discharge Summary Date of Service October 02, 2025 Principal Dx & Hospital Course #1 = Principal Diagnosis (1) Chest pain: (2) HTN (hypertension): (3) Hypercholesterolemia: (4) GERD (gastroesophageal reflux disease): (5) Chronic migraine: Plan #Chest Pain - Pt is a 55 y/o F with a PMHx significant for HTN, HLD, GERD, hyperactive bladder, chronic migraine w/out aura, BPPV, lumbar pain w/ Lt radiculopathy, cervical radiculopathy, Opiate dependence depression, and adjustment disorder, who presented to the ED c/o chest pain. 10/01 EKG consistent w/ EKG from 2022; ED Serial Trops x3 all <2.3; 10/01 D-dimer 560; 10/01 CXR w/out any evidence of acute processes; 10/01 CTA w/ no atherosclerotic calcifications seen in coronary arteries, no evidence of PE, and no evidence of other underlying cardiopulmonary issues. Pt was then admitted to the hospital for further evaluation and care. Cardiology was consulted. Serial troponin following admission remained negative. 10/02 Echocardiogram was w/ Lt ventricle is WNL in size, WNL Lt ventricular wall thickness and function, EF of 60-65%, WNL lt wall-motion is WNL - a Grade I diastolic dysfunction (abnormal relaxation pattern noticed). Discussed results with on-call alarm signaler who recommended outpatient f/u for stress testing. Cardiology was overall non-concerned for cardiac pathology. Pt should f/u w/ PCP within 1 week of discharge. #HTN | HLD - No acute concerns; 10/02 Lipid Panel Trigs 119, cholesterol 185, LDL 92, VLDL 24, HDL 69; please continue ASA, Propanolol, Atorvastatin, and [place]-3 supplementations as prescribed. #GERD - No acute concerns, continue omeprazole as prescribed #Hypokalemia - No acute concerns, continue potassium supplement as prescribed #Chronic Migraine w/out Aura - No acute concerns; continue Topiramate, Rizatriptan 10mg #Opioid Dependence #Lumbar pain w/ lt sided radiculopathy | Cervical Radiculopathy - No acute concerns, continue topical Voltaren gel, Carisoprodol, [place] 7.5/325 #Hyperactive Bladder - No acute concerns, continue Oxybutynin #Depression | Adjustment Disorder | Insomnia - No acute concerns, continue Trazodone, Duloxetine #BPPV - No acute concerns, not managed with medication Dispo: Home, self-care Notes For Next Care Provider Recommend outpatient cardiac stress test Admission HPI Per Admitting Provider Pt is a 55 y/o F with a PMHx significant for HTN, HLD, GERD, urinary retention, hyperactive bladder, chronic migraine w/out aura, BPPV, NOAH, Ataxia(?), lumbar pain w/ Lt radiculopathy, cervical radiculopathy, Opiate dependence depression, and adjustment disorder, who presented to the ED c/o chest pain. Pt states the while she was at work early this AM, she experienced a sharp chest pain while she was trying to move a box. Pt notes that once the pain started, it started to radiate up into her neck and into her lt shoulder. She additionally became very nauseous, dizzy, and diaphoretic - pt notes that she was dripping with sweat. 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 Pt endorses fatigue, difficulty sleeping, chest pain/pressure, diaphoresis, occasional palpitations, nausea, and decrease in appetite. She additionally notes an increasing frequency in her migraines and fever/chills that are associated with them, per pt. Pt additionally admits to mild rhinorrhea and sore throat. Pt denies vertigo, congestion, cough, SOB, vomiting, diarrhea, urinary frequency/urgency and dysuria. Pt states that she had a similar episode to this in 2019. Further review of charts on 07/31-08/02/2020 revealed that the patient underwent a dobutamine stress echo in addition to a cardiac catheterization. At that time the dobutamine stress test revealed no ischemic changes or chest discomfort despite being quite close to a hypertensive response. She underwent cardiac catheterization on 08/02/2020 which revealed the following: no angiographic evidence of CAD, Left dominant system, Normal lt-sided filling pressures, no aortic stenosis. Pt was not believed to be experiencing cardiac CP at that time and was discharged home. While pt was in the ED, she received an EKG that was without significant change when compared to EKG from 10/09/2022. D-dimer was elevated at 560 on admission w/ serial troponin x3 all being <2.3. CXR at that time was without any acute findings. CTA demonstrated no atherosclerotic calcifications, evidence of pulmonary embolism, or evidence of other underlying cardiopulmonary issues. Pertinent Family Hx: Pt today notes that she has a strong FHx of family members with cardiac related illness. She notes that her father had a quadruple bypass at 48yrs old and has since had several stents placed. She additionally notes that her Aunt exp erienced an TN following a vasospastic event at 50 yrs old. Separately she had another Aunt pass away at 54 from CAD related incident and has a 42 y/o female cousin who had stents placed in relation to CAD. Discharge Plan Discharge Items Patient Disposition: Home - Self-Care Reason For Visit: CHEST PAIN Discharge Diagnosis: Chest Pain Condition on Discharge: Good Activity: Resume your previous activity Non-emergency contact: Primary Care Provider Call non-emergency contact if: you have any medication questions, your symptoms worsen and your pain is not controlled Follow-up/Referrals: Karl Potts MD [Primary Care Provider] - 10/10/25 1:30 pm (appointment is with Shannon Cameron PA-C) Diet: Heart Healthy Addtl Attending Provider Instructions: Hospital course: You were admitted to the hospital for chest pain. While you were in the hospital, you received a Serial Troponins, and EKG, CTA of the Chest, and an Echocardiogram that were all negative for any acute cardiac event. These were all reviewed by the news production supervisor alarm signaler, who recommended that you follow-up for a cardiac stress test on an outpatient bases Discharge Plan: -Follow up with PCP within one week of discharge -Discuss outpatient Cardiac stress test with your PCP Medications: Your medication list has been reviewed and reconciled upon discharge to ensure accuracy and continuity of care. An updated list of all your medications is included with your hospital discharge paperwork. Please review this list closely, and make note of any changes. Take your medications as instructed; do not skip a dose of your medicines. Make sure all of your doctors know every medicine you are taking (including [id number] medicines, vitamins, and supplements). Call your primary care provider before taking any new medicines (including over- the-counter medicines, vitamins, and supplements), because some of these may interact with your current medications, or may make your symptoms worse. Tell your primary care provider if you cannot afford your medications. Activity: You can do normal everyday activities as your body allows. Take rest breaks if you feel tired. Do not overexert. Stop activity if you have pain, shortness of breath or feel dizzy. Follow-up appointments: Make an appointment with your primary care physician within one week of discharge. A copy of this summary will be sent to them. Every time you see your primary care physician, or any other doctor, bring your medication list, and a list of questions. CONTACT YOUR PRIMARY CARE PROVIDER if you experience any of the following: Shortness of breath or difficulty breathing Fevers or chills Feeling tired with normal activity or experiencing dizziness or fainting Difficulty following your treatment plan, or difficulty taking medications CALL 911 OR GO TO THE EMERGENCY DEPARTMENT if you experience any of the following: Severe abdominal pain or nausea/vomiting Severe chest pain, or chest pain that radiates (moves) to your jaw or arm Sudden, severe shortness of breath or difficulty breathing Thank you for allowing us to participate in your care. Pending Studies at Discharge: No Stand-Alone Forms: [facility], Work/School Release, Smoking Cessation Medications and DC Order Prescriptions: Continued cetirizine [Zyrtec] 10 mg tablet 10 mg PO DAILY PRN (Reason: allergy symptoms) Qty: 90 3RF trazodone 50 mg tablet 50 - 150 mg PO HS PRN (Reason: insomnia) Qty: 270 3RF Hold Instructions: Home Medication placed on hold at Doctor's office diclofenac sodium 1 % gel 4 g TOP QID PRN (Reason: Pain) Qty: 200 5RF Rx Instructions: apply to single knee, ankle, foot; for foot includes sole/toes/top of foot triamcinolone acetonide 0.1 % cream 1 applic TOP BID PRN (Reason: skin irritation) Qty: 80 3RF epinephrine 0.3 mg/0.3 mL auto-injector 0.3 mg IM .COMPLEX PRN (Reason: anaphylaxis) Qty: 2 3RF Rx Instructions: 0.3 mg IM Inject 0.3 ML Intramuscularly as directed and call 911 PRN hydrocortisone 2.5 % cream 1 applic topical TID PRN (Reason: skin irritation) Qty: 30 11RF omeprazole 40 mg capsule,delayed release(DR/EC) 40 mg PO BID Qty: 180 3RF duloxetine 60 mg capsule,delayed release(DR/EC) 60 mg PO BID Qty: 180 3RF rizatriptan 10 mg tablet See Patient Comments PO ONCE PRN (Reason: migraine headache) Qty: 12 11RF Rx Instructions: 10 mg oxybutynin chloride 5 mg tablet 5 mg PO BID Qty: 180 3RF carisoprodol 350 mg tablet 350 mg PO BID PRN (Reason: muscle pain) Qty: 60 2RF Patient Comments: 07/29 #60 Rx Instructions: approved 05/10/2020 no end date potassium chloride 10 mEq tablet extended release 10 meq PO BID Qty: 180 3RF hydrocodone-acetaminophen 7.5-325 mg tablet See Rx Instructions PO Q6H MDD 6 PRN (Reason: pain M54.16) Qty: 180 0RF Patient Comments: 09/27 #180 Rx Instructions: 1-2 tabs PO every 6 hours PRN; max 6 tabs omega-3 fatty acids [Fish Oil Concentrate] 1,000 mg capsule 2,000 mg PO BID Qty: 360 3RF pyridoxine (vitamin B6) 100 mg tablet 100 mg PO PM propranolol 120 mg capsule,extended release 24hr 120 mg PO QAM Qty: 90 3RF Rx Instructions: change in dosing [place] (PF) 100 % drops 1 drp ophthalmic (eye) DAILY Rx Instructions: INTO BOTH EYES topiramate 25 mg tablet 25 mg PO .COMPLEX Rx Instructions: 25 mg orally 1 in am and 1 in pm; aspirin 81 mg tablet,delayed release (DR/EC) 81 mg PO PM atorvastatin 40 mg tablet 40 mg PO DAILY Discharge Orders: Discharge Order (Routine); Ordered 10/02/25 Ordered By: Rita Traylor Admission Data Admit Date/Time: 10/01/25 16:18 Attending Provider: Johnathon Ely Admit Provider: Johnathon Ely Primary Care Provider: Karl Potts Other Providers: Johnathon Ely; Antione Bejarano; Rosalio Aggarwal; Deshawn Alex; Bhargav Awan; Dov Greer Jr; Kenney Small; Gerda Solis; Jazmin Das; George Allison; George Manuel; Shannon Garvin; Anthony Mckay; Radha Ortega; Anthony Chavira; Eddie Montgomery; Shree Charles; Dimitri Martinez; Mia Lindsay; Rakel Becerril Hospital Stay Data Consultations 10/01/25 14:19 ED Decision to Admit Stat 10/01/25 18:25 Consult Cardiology Routine Diagnostic Imagining Performed Chest X-Ray 10/01/25 11:11 XR chest 1V not portable CLINICAL HISTORY: Chest pain, nonspecific COMPARISON STUDY: 07/31/2020 FINDINGS: Heart size and pulmonary vasculature are normal. No consolidation or pleural effusion. No pneumothorax. IMPRESSION: No acute findings. ACT 112: Negative or not required by law. Electronically signed by: Reid Garcia M.D. 10/01/2025 12:06 PM Chest CTA 10/01/25 15:41 HISTORY: Chest pain. Elevated D-dimer TECHNIQUE: CT angiography of the chest was performed with contrast. Images are presented in axial, sagittal, and coronal reformats. 3D MIP reconstructions are also provided. COMPARISON: None. FINDINGS: Lungs: No focal lung consolidation. No pneumothorax or pleural effusion. No suspicious pulmonary nodules. The central tracheobronchial tree is patent. Heart/Mediastinum: Normal heart size. No pericardial effusion. Coronary artery atherosclerotic calcifications are absent. The thoracic esophagus is unremarkable. No suspicious mediastinal or hilar lymph nodes. Included thyroid gland is unremarkable. Vasculature: No thoracic aortic aneurysm. No evidence of aortic dissection. Main pulmonary artery is normal in caliber. No evidence of acute pulmonary embolism or acute aortic process. Soft Tissues: No enlarged axillary lymph nodes. Upper Abdomen: Unremarkable. Bones: No acute osseous abnormality. IMPRESSION: * No evidence of acute pulmonary embolism or acute aortic process. * No acute cardiopulmonary findings. * Chronic and/or incidental findings as above. Electronically signed by Jayce Yoon 10-01-2025 5:54 PM 10/01/25 15:41 CT angio chest PE protocol Stat Discharge Instructions Given to Patient (Per Discharging Provider) Hospital course: You were admitted to the hospital for chest pain. While you were in the hospital, you received a Serial Troponins, and EKG, CTA of the Chest, and an Echocardiogram that were all negative for any acute cardiac event. These were all reviewed by the news production supervisor alarm signaler, who recommended that you follow-up for a cardiac stress test on an outpatient bases Discharge Plan: -Follow up with PCP within one week of discharge -Discuss outpatient Cardiac stress test with your PCP Medications: Your medication list has been reviewed and reconciled upon discharge to ensure accuracy and continuity of care. An updated list of all your medications is included with your hospital discharge paperwork. Please review this list closely, and make note of any changes. Take your medications as instructed; do not skip a dose of your medicines. Make sure all of your doctors know every medicine you are taking (including over-the- counter medicines, vitamins, and supplements). Call your primary care provider before taking any new medicines (including over- the-counter medicines, vitamins, and supplements), because some of these may interact with your current medications, or may make your symptoms worse. Tell your primary care provider if you cannot afford your medications. Activity: You can do normal everyday activities as your body allows. Take rest breaks if you feel tired. Do not overexert. Stop activity if you have pain, shortness of breath or feel dizzy. Follow-up appointments: Make an appointment with your primary care physician within one week of discharge. A copy of this summary will be sent to them. Every time you see your primary care physician, or any other doctor, bring your medication list, and a list of questions. CONTACT YOUR PRIMARY CARE PROVIDER if you experience any of the following: Shortness of breath or difficulty breathing Fevers or chills Feeling tired with normal activity or experiencing dizziness or fainting Difficulty following your treatment plan, or difficulty taking medications CALL 911 OR GO TO THE EMERGENCY DEPARTMENT if you experience any of the following: Severe abdominal pain or nausea/vomiting Severe chest pain, or chest pain that radiates (moves) to your jaw or arm Sudden, severe shortness of breath or difficulty breathing Thank you for allowing us to participate in your care. Supervising Physician Co-Signing Physician Notes The patient was not seen by me. Chart reviewed. Case discussed with VEDA Conde. Agree with assessment and plan. Total Time Total Time Spent Total Time Spent (In Minutes): Time spent day of discharge 32 minutes including direct patient care, medication reconciliation, documentation, review of labs and images, and coordination of care. Coding Level of Care Code 73870 INP/OBS DISCH >30 MIN Diagnoses Chest pain R07.9 HTN (hypertension) I10 Hypercholesterolemia E78.00 GERD (gastroesophageal reflux disease) K21.9 Chronic migraine"
[2025-10-02 16:10] VITALS: PULSE 51
--- NOTE | 2025-10-03 00:03 | Cardiology Consultation ---
Date of Consultation October 03, 2025 History of Present Illness Attending Physician: Johnathon Ely MD Allergies Allergy/AdvReac Type Severity Reaction Status Date / Time hornet venom Allergy Severe ANAPHYLAXIS Verified 08/09/25 11:11 Sulfa (Sulfonamide Allergy Intermediate HIVES Verified 08/09/25 11:11 Antibiotics) valdecoxib Allergy Intermediate HIVES WITH Verified 08/09/25 11:11 BEXTRA adhesive tape AdvReac Mild SKIN Verified 08/09/25 11:11 IRRITATION Home Medications Medication Instructions Recorded Confirmed Type cetirizine 10 mg tablet (Zyrtec) 10 mg PO DAILY PRN allergy 03/09/19 10/01/25 Rx symptoms #90 tabs omega-3 fatty acids 1,000 mg 2,000 mg (2 x 1,000 mg) PO BID 05/26/19 10/01/25 Rx capsule (Fish Oil Concentrate) #360 caps pyridoxine (vitamin B6) 100 mg 100 mg PO PM 05/26/19 10/01/25 History tablet aspirin 81 mg tablet,delayed 81 mg PO PM 08/24/20 10/01/25 History release trazodone 50 mg tablet 50 - 150 mg (1 - 3 x 50 mg) PO HS 09/16/22 10/01/25 Rx PRN insomnia #270 tabs diclofenac sodium 1 % topical gel 4 g topical QID PRN Pain #200 grams 02/26/23 10/01/25 Rx triamcinolone acetonide 0.1 % 1 applic topical BID PRN skin 02/26/23 10/01/25 Rx topical cream irritation #80 grams epinephrine 0.3 mg/0.3 mL 0.3 mg (0.3 mL) IM .COMPLEX PRN 04/09/23 10/01/25 Rx injection, auto-injector anaphylaxis 3 doses #2 ea hydrocortisone 2.5 % topical cream 1 applic topical TID PRN skin 09/30/23 10/01/25 Rx irritation #30 grams perfluorohexyloctane (PF) 100 % 1 drp ophthalmic (eye) DAILY 05/04/24 10/01/25 History eye drops ([place] (PF)) propranolol 120 mg capsule,24 120 mg PO QAM #90 caps 11/04/24 10/01/25 Rx hr,extended release omeprazole 40 mg capsule,delayed 40 mg PO BID #180 caps 11/26/24 10/01/25 Rx release duloxetine 60 mg capsule,delayed 60 mg PO BID #180 caps 01/31/25 10/01/25 Rx release rizatriptan 10 mg tablet See Rx Instructions PO ONCE PRN 03/14/25 10/01/25 Rx migraine headache #12 tabs oxybutynin chloride 5 mg tablet 5 mg PO BID #180 tabs 05/30/25 10/01/25 Rx carisoprodol 350 mg tablet 350 mg PO BID PRN muscle pain #60 07/29/25 10/01/25 Rx tabs potassium chloride 10 mEq 10 meq PO BID #180 tabs 09/05/25 10/01/25 Rx tablet,extended release topiramate 25 mg tablet 25 mg PO .COMPLEX 09/13/25 10/01/25 History hydrocodone 7.5 mg-acetaminophen See Rx Instructions PO Q6H PRN 09/26/25 10/01/25 Rx 325 mg tablet pain M54.16 #180 tabs atorvastatin 40 mg tablet 40 mg PO DAILY 10/01/25 10/01/25 History Patient History Medical History History of kidney stones Surgical History H/O bilateral salpingo-oophorectomy History of partial hysterectomy History of repair of rotator cuff RT History of arthroplasty of right shoulder H/O prior ablation treatment NERVE ABLATION NEAR LUMBAR SPINE History of anesthesia reaction wakes up very emotional and sobbing History of section x2 History of carpal tunnel release RT/LEFT History of lithotripsy History of esophagogastroduodenoscopy (EGD) [place] teeth extracted History of cardiac catheterization 08/02/20 DR MERCEDES > for C.P> no stents/all clear History of appendectomy Family History Father Diabetes Family history of diabetes mellitus Coronary heart disease Aunt Coronary heart disease Myocardial infarction Other Family history of coronary artery disease No family history of adverse response to anesthesia Social History Smoking Status: Never smoker Second Hand Exposure: No; Do You Dip or Chew Tobacco: No; Hx Alcohol Use: Yes Alcohol type: wine Hx Substance Use: No Preferred Language: [place] Communication Ability: Effective Visual Impairment: No Limitations Hearing Ability: Normal Medical Parasitologist Required: No Beliefs That Will Affect Care: None marital status: Current Living Situation: Family Current Living Situation Comment: AND SON current occupational status: employed 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
== END 2025-10-02 17:08 | disposition home or self-care (01) ==
LOC: SUATTDRO → ED 11:00 → EDINP 16:18 → INTOOBSV 16:18 → 2N 18:25